=== PATIENT | female | born 1970 | race Caucasian/White ===

== ENCOUNTER 2019-12-12 14:32 | Outpatient (REF) | payer OTHER, SELFPAY ==
--- NOTE | 2019-12-12 14:40 | MM_ITS ---
EXAMINATION: MM SCREENING DIGITAL BREAST TOMOSYNTHESIS, BILATERAL CLINICAL INFORMATION: Screening. Asymptomatic. Family history breast cancer, maternal grandmother. Prior implants, explantation 2010. The lifetime risk of breast cancer based on the Tyrer-Cuzick Model is 10%. COMPARISON: Mammography: 09/05/2018, 08/27/2017, 08/17/2016 TECHNIQUE: Digital breast tomosynthesis is performed in both the craniocaudal and mediolateral oblique views along with computer-aided detection (CAD). Synthesized 2D images are generated from the tomosynthesis. FINDINGS: The breasts are heterogeneously dense, which may obscure small masses (ACR BI-RADS breast composition Category c). Parenchymal pattern is similar to prior studies. Breast tissue composition borders on average fibroglandular. There is no developing density or interval mass or architectural abnormality. Again, there are numerous bilateral scattered calcifications in both breasts. The axilla and skin contours are unremarkable. No significant changes from prior studies. MM/MM tomosynthesis screening BI IMPRESSION: No significant changes from prior studies. ASSESSMENT: BI-RADS 2: Benign RECOMMENDATION: Routine annual mammography screening. This patient's information was entered into a reminder system with a target due date for their next mammogram.
== END 2019-12-12 14:33 | disposition home or self-care (01) ==
LOC: HO.MAMMO 14:32
PROVIDERS: Visit Provider Family Medicine
DX: Z12.31 Encounter for screening mammogram for malignant neoplasm of breast (principal)
CPT/HCPCS: 77063; 77067

== ENCOUNTER 2020-02-03 08:31 | Day surgery (SDC) | payer OTHER, SELFPAY ==
[2020-01-27 11:31] VITALS: BMI 33.6
--- NOTE | 2020-02-02 09:28 | HO.ANESPROP2 ---
Documented by User: Reshma Pak 02/02/20 09:29 HPI - Anesthesia Eval Consult details Narrative: 49yo F for Colonoscopy [facility] Past Medical History Medical History History of breast implant removal No significant medical problems PONV (postoperative nausea and vomiting) Surgical History Surgical History History of nasal surgery Hx of breast implants, bilateral Hx of cholecystectomy Social History Social History Are you a primary neurocritical care physician to a significant other at home: No Smoking Status: Never smoker Use of substances other than those prescribed or required for medical reasons: No Have you been hit, kicked, punched, or otherwise hurt by someone within the past year? If so, by whom?: No Advance Directives: No Advance Directives Information Provided: No Advance Directives on File: No Recently lost weight without trying: No Meds Allergies Allergy/AdvReac Type Severity Reaction Status Date / Time No Known Allergies Allergy Unverified 01/27/20 11:27 Home Medications Medication Instructions Recorded Confirmed Type multivitamin 1 tab PO DAILY 01/27/20 01/27/20 History Exam Exam Date and Time: February 02, 2020927 Height,Weight and Vital Signs: Height 5 ft 3 in Weight 86.183 kg Assessment and Plan Assessment Anesthesia Assessment: Chart Reviewed Documented by User: Rose Stapleton 02/03/20 09:01 [facility] Past Medical History Medical History History of breast implant removal No significant medical problems PONV (postoperative nausea and vomiting) Surgical History Surgical History History of nasal surgery Hx of breast implants, bilateral Hx of cholecystectomy Social History Social History Are you a primary neurocritical care physician to a significant other at home: No Smoking Status: Never smoker Use of substances other than those prescribed or required for medical reasons: No Have you been hit, kicked, punched, or otherwise hurt by someone within the past year? If so, by whom?: No Advance Directives: No Advance Directives Information Provided: No Advance Directives on File: No Recently lost weight without trying: No Meds Allergies Allergy/AdvReac Type Severity Reaction Status Date / Time No Known Allergies Allergy Unverified 01/27/20 11:27 Home Medications Medication Instructions Recorded Confirmed Type multivitamin 1 tab PO DAILY 01/27/20 01/27/20 History Exam Airway Mallampati Class: III (Mouth doesnt open wide) TM Dist: >3cm Neck ROM: Full Loose/Missing/Broken Teeth: No Heart: RRR Lungs: CTA Assessment and Plan Assessment Anesthesia Assessment: Anesthesia Plan Discussed and Chart Reviewed Final Anesthetic Review NPO: Yes ASA Class: II Final Preanesthetic Review: Meds/Allgs Chart Reviewed, Consent Obtained/Reviewed and Anes Risks/Benef Reviewed Patient Risk: Low Procedure Risk: Low Anesthetic Plan Anesthetic Plan: MAC: Disposition: Standard PACU
[2020-02-03 08:39] VITALS: BP 148/94; PULSE 78; RESP 16; TEMP 36.4; O2SAT 98
[2020-02-03] MEDS: Lactated Ringers 1,000 ML 100 ML IVCONT (09:01)
--- NOTE | 2020-02-03 09:26 | MHC.SHP ---
Pre-Procedural Eval Section A The patient is an INPATIENT: No Changes since office visit: No Cold of Flu in the past 2 weeks, No New Medical Problems, No Changes in Medication and No Patient answered all questions The History & Physical has been completed within 30 days and I have reviewed it.: Yes Section B Chief Complaint: screening Allergies: Allergies Allergy/AdvReac Type Severity Reaction Status Date / Time No Known Allergies Allergy Unverified 01/27/20 11:27 Plan I have reviewed the history and physical and performed a pertinent physical examination on my patient. No changes have occurred unless specified.
[2020-02-03 09:59] VITALS: BP 116/69; PULSE 74; RESP 16; TEMP 36.2; O2SAT 97
--- NOTE | 2020-02-03 10:05 | PM.OP ---
Brief Operative Note Date of Service: 02/03/20 Pre-op diagnosis: SCREENING Post-op diagnosis: same (SAME, DIVERTICULOSIS) Procedure: COLONOSCOPY Surgeon: Agustin Amor Anesthesia: MAC Estimated blood loss (mL): 0 Pathology: none sent Condition: stable Disposition: PACU
[2020-02-03 10:14] VITALS: BP 130/84; PULSE 76; RESP 16; TEMP 36.2; O2SAT 97
--- NOTE | 2020-02-03 10:17 | OP_ITS ---
SURGEON: Agustin Amor MD INDICATIONS: Colon cancer screening. PREOPERATIVE DIAGNOSIS: POSTOPERATIVE DIAGNOSIS: PROCEDURE PERFORMED: ESTIMATED BLOOD LOSS: COMPLICATIONS: ANESTHESIA: ASSISTANTS: SPECIMENS: PROCEDURE: Colonoscopy to the terminal ileum. MEDICATIONS: Monitored anesthesia care. DESCRIPTION OF PROCEDURE: History and physical performed. The risks and benefits of the procedure were explained to the patient. Informed consent was obtained. The patient was placed in the left lateral decubitus position. A digital rectal exam was performed and was found to be normal. The Olympus pediatric video colonoscope was introduced into the rectum and advanced to the cecum without difficulty. The cecum was identified by transillumination, palpation, and identification of ileocecal valve. Examination was performed and the scope was removed. She tolerated the procedure well and returned to recovery area in stable condition. FINDINGS: The terminal ileum was examined and appeared normal. The visualized colonic mucosa was within normal limits without evidence of masses or ulcers. No polyps were identified. There was mild diverticulosis involving the sigmoid. The quality of the prep was excellent. Retroflexed examination showed small internal hemorrhoids. IMPRESSION: Diverticulosis, normal colonoscopy. RECOMMENDATIONS: 1. Follow up as needed. 2. Repeat colonoscopy is recommended in 10 years for average risk individuals. MD GELY Torres/ERIC / [id number]
--- NOTE | 2020-02-03 10:33 | HO.POSTANES ---
Post Anesthesia Evaluation Post Anesthesia Evaluation Vital Signs: Vital Signs Temp Pulse Resp BP Pulse Ox 02/03/20 10:14 97.2 F 76 16 130/84 97 02/03/20 09:59 97.2 F 74 16 116/69 97 02/03/20 08:39 97.6 F 78 16 148/94 H 98 Anesthesia: Monitored Mental Status: Awake Pain Control: Satisfactory Nausea/Vomiting: None Hydration: Adequate Anesthesia-Related Issues: No Anes. Related Issues
== END 2020-02-03 10:38 | disposition home or self-care (01) ==
PROVIDERS: PCP Family Medicine; Visit Provider Internal Medicine Gastroenterology
PROC: 0DJD8ZZ Inspection of Lower Intestinal Tract, Via Natural or Artificial Opening Endoscopic (ICD-10-PCS; CPT 45378; principal; 2020-02-03 09:50)
DX: Z12.11 Encounter for screening for malignant neoplasm of colon (principal); Z90.49 Acquired absence of other specified parts of digestive tract; K57.30 Diverticulosis of large intestine without perforation or abscess without bleeding; K64.8 Other hemorrhoids
CPT/HCPCS: 45378

== ENCOUNTER 2020-12-17 14:14 | Outpatient (REF) | payer OTHER, SELFPAY ==
--- NOTE | ~2020-12-17 | MM_ITS ---
EXAMINATION: MM SCREENING DIGITAL BREAST TOMOSYNTHESIS, BILATERAL CLINICAL INFORMATION: Screening. Asymptomatic. The lifetime risk of breast cancer based on the Tyrer-Cuzick Model is 9%. COMPARISON: Mammography: 12/12/2019, 09/05/2018, 08/27/2017 TECHNIQUE: Digital breast tomosynthesis is performed in both the craniocaudal and mediolateral oblique views along with computer-aided detection (CAD). Synthesized 2D images are generated from the tomosynthesis. FINDINGS: There are scattered areas of fibroglandular density (ACR BI-RADS breast composition Category b). Breast tissue composition borders on average fibroglandular. Parenchymal pattern is similar to prior exams. Smooth minor fibronodular asymmetries are stable. There is no developing density or interval mass or architectural abnormality. Again, there are numerous bilateral scattered calcifications in both breasts. No significant change. MM/MM tomosynthesis screening BI IMPRESSION: No significant changes from prior study. ASSESSMENT: BI-RADS 2: Benign RECOMMENDATION: Routine annual mammography screening. This patient's information was entered into a reminder system with a target due date for their next mammogram.
== END 2020-12-17 14:15 | disposition home or self-care (01) ==
LOC: HO.MAMMO 14:14
PROVIDERS: Visit Provider Family Medicine
DX: Z12.31 Encounter for screening mammogram for malignant neoplasm of breast (principal)
CPT/HCPCS: 77063; 77067

== ENCOUNTER 2021-12-19 14:01 | Outpatient (REF) | payer OTHER, SELFPAY ==
--- NOTE | ~2021-12-19 | MM_ITS ---
EXAMINATION: MM SCREENING DIGITAL BREAST TOMOSYNTHESIS, BILATERAL CLINICAL INFORMATION: Screening. Asymptomatic. COMPARISON: Mammography: 12/17/2020, 12/12/2019, 09/05/2018 TECHNIQUE: Digital breast tomosynthesis is performed in both the craniocaudal and mediolateral oblique views along with computer-aided detection (CAD). Synthesized 2D images are generated from the tomosynthesis. FINDINGS: The breasts are heterogeneously dense, which may obscure small masses (ACR BI-RADS breast composition Category c). Parenchymal pattern is similar to prior studies. There are scattered stable minor asymmetries and fibronodular changes similar to prior exams. No developing density or interval architectural abnormality. No significant mass. Again, there are numerous punctate round calcifications in each breast. The axilla and skin contours are unremarkable. No significant changes from prior exams. MM/MM tomosynthesis screening BI IMPRESSION: No significant changes from from prior exams. ASSESSMENT: BI-RADS 2: Benign RECOMMENDATION: Routine annual mammography screening. This patient's information was entered into a reminder system with a target due date for their next mammogram.
== END 2021-12-19 14:02 | disposition home or self-care (01) ==
LOC: HO.MAMMO 14:01
PROVIDERS: Visit Provider Family Medicine
DX: Z12.31 Encounter for screening mammogram for malignant neoplasm of breast (principal)
CPT/HCPCS: 77063; 77067

== ENCOUNTER 2022-11-28 08:13 | Outpatient (REF) | payer OTHER, SELFPAY ==
[2022-11-28 11:26] LABS: MANUAL DIFF FLAG NO
[2022-11-28 11:54] LABS: Basophils Absolute Auto 0.1 X10*3/uL (0.0-0.2); Basophils Percent Auto 0.8 % (0-2); Eosinophils Absolute Auto 0.6 X10*3/uL (0.0-0.4); Eosinophils Percent Auto 6.7 % (0-4); Hematocrit 41.6 % (37.0-47.0); Hemoglobin 13.3 g/dl (12.0-16.0); Imm Gran Abs Auto 0.02 X10*3/uL (0.00-0.03); Imm Gran Pct Auto 0.2 % (0.0-0.4); Lymphocytes Absolute Auto 3.5 X10*3/uL (1.2-4.9); Lymphocytes Percent Auto 42.2 % (20-40); Mean Corpuscular Hemoglobin 27.3 pg (27.0-33.0); Mean Corpuscular Volume 85.2 fL (80.0-98.0); Mean Platelet Volume 11.5 fL (9.4-12.3); Monocytes Absolute Auto 0.4 X10*3/uL (0.1-1.2); Monocytes Percent Auto 5.2 % (2-11); Neutrophils Absolute Auto 3.7 x10*3/uL (2.0-8.3); Neutrophils Percent Auto 44.9 % (45-73); Platelet Count 221 X10*3/uL (160-400); Red Blood Count 4.88 X10*6/uL (4.20-5.50); Red Cell Distribution Width 12.5 % (11.0-16.0); White Blood Count 8.3 X10*3/uL (4.8-10.8)
[2022-11-28 12:32] LABS: Alanine Aminotransferase 26 U/L (0-31); Albumin Level 4.3 g/dL (3.5-5.0); Alkaline Phosphatase 96 U/L (39-117); Anion Gap 13 (12-20); Aspartate Amino Transferase 21 U/L (5-31); Bilirubin Direct 0.1 mg/dL (0.0-0.5); Bilirubin Total 0.4 mg/dL (0.0-1.0); Blood Urea Nitrogen 12 mg/dL (9-16); Calcium 9.6 mg/dL (8.4-10.2); Carbon Dioxide 25 mmol/L (22-29); Chloride 108 mmol/L (96-108); Cholesterol 204 mg/dL (<200); Estimated Glomerular Filt Rate > 60; Glucose Random 86 mg/dL (60-115); HDL Cholesterol 39 mg/dL (>40); LDL Cholesterol Calculated 133 mg/dL (<100); Magnesium 2.3 mg/dL (1.6-2.6); Potassium 3.7 mmol/L (3.3-5.1); Sodium 142 mmol/L (135-145); Total Protein 7.3 g/dL (6.5-8.0); Triglycerides 164 mg/dL (<150)
[2022-11-28 12:33] LABS: TSH reflex Free T4 3.48 uIU/mL (0.32-4.0); Vitamin D 25-OH Total 65.4 ng/mL (>30)
== END 2022-11-28 08:14 | disposition home or self-care (01) ==
LOC: HO.HHCL 08:13
PROVIDERS: Visit Provider Family Medicine
DX: E78.5 Hyperlipidemia, unspecified (principal); R53.83 Other fatigue; I10 Essential (primary) hypertension; N95.9 Unspecified menopausal and perimenopausal disorder; Z13.21 Encounter for screening for nutritional disorder
CPT/HCPCS: 36415; 80048; 80061; 80076; 82306; 83735; 84443; 85025

== ENCOUNTER 2022-12-25 13:29 | Outpatient (REF) | payer OTHER, SELFPAY ==
--- NOTE | ~2022-12-25 | MM_ITS ---
EXAMINATION: MM SCREENING DIGITAL BREAST TOMOSYNTHESIS, BILATERAL CLINICAL INFORMATION: Screening. Asymptomatic. COMPARISON: Mammography: This study is compared with prior exams dating back to 2018. TECHNIQUE: Digital breast tomosynthesis is performed in both the craniocaudal and mediolateral oblique views along with computer-aided detection (CAD). Synthesized 2D images are generated from the tomosynthesis. FINDINGS: There are scattered areas of fibroglandular density (ACR BI-RADS breast composition Category b). There are no significant masses, abnormal calcifications, or other abnormalities. There are scattered benign calcifications throughout each breast. MM/MM tomosynthesis screening BI IMPRESSION: No mammographic evidence of malignancy. ASSESSMENT: BI-RADS BI-RADS 2 - Benign Findings RECOMMENDATION: Routine annual mammography screening. 1 year F/U This examination should not preclude the clinical evaluation of a suspicious palpable abnormality. This patient's information was entered into a reminder system with a target due date for their next mammogram.
== END 2022-12-25 13:30 | disposition home or self-care (01) ==
LOC: HO.MAMMO 13:29
PROVIDERS: PCP Family Medicine; Visit Provider Family Medicine
DX: Z12.31 Encounter for screening mammogram for malignant neoplasm of breast (principal)
CPT/HCPCS: 77063; 77067

== ENCOUNTER → 2022-12-25 13:45 | Outpatient (BNV) | payer OTHER, SELFPAY | PROVIDERS: PCP Family Medicine; Visit Provider Radiology Diagnostic Radiology | DX: Z12.31 Encounter for screening mammogram for malignant neoplasm of breast (principal) | CPT/HCPCS: 77063; 77067 ==

== ENCOUNTER 2023-11-13 08:31 | Outpatient (REF) | payer OTHER, SELFPAY ==
[2023-11-13 11:05] LABS: MANUAL DIFF FLAG NO
[2023-11-13 11:17] LABS: Basophils Percent Auto 0.5 % (0-2); Eosinophils Absolute Auto 0.5 X10*3/uL (0.0-0.4); Eosinophils Percent Auto 6.9 % (0-4); Hematocrit 40.9 % (37.0-47.0); Hemoglobin 13.3 g/dl (12.0-16.0); Imm Gran Abs Auto 0.03 X10*3/uL (0.00-0.03); Imm Gran Pct Auto 0.4 % (0.0-0.4); Lymphocytes Percent Auto 37.8 % (20-40); Mean Corpuscular HGB Conc 32.5 g/dl (31.0-35.0); Mean Corpuscular Hemoglobin 27.5 pg (27.0-33.0); Mean Corpuscular Volume 84.5 fL (80.0-98.0); Mean Platelet Volume 10.9 fL (9.4-12.3); Monocytes Absolute Auto 0.4 X10*3/uL (0.1-1.2); Monocytes Percent Auto 5.2 % (2-11); Neutrophils Absolute Auto 3.9 x10*3/uL (2.0-8.3); Neutrophils Percent Auto 49.2 % (45-73); Platelet Count 212 X10*3/uL (160-400); Red Blood Count 4.84 X10*6/uL (4.20-5.50); Red Cell Distribution Width 12.7 % (11.0-16.0); White Blood Count 7.8 X10*3/uL (4.8-10.8)
[2023-11-13 11:34] LABS: Alanine Aminotransferase 30 U/L (0-31); Albumin Level 4.3 g/dL (3.5-5.0); Alkaline Phosphatase 101 U/L (39-117); Anion Gap 12 (12-20); Aspartate Amino Transferase 24 U/L (5-31); Bilirubin Direct 0.1 mg/dL (0.0-0.5); Bilirubin Total 0.4 mg/dL (0.0-1.0); Blood Urea Nitrogen 17 mg/dL (9-16); Calcium 9.6 mg/dL (8.4-10.2); Carbon Dioxide 26 mmol/L (22-29); Chloride 108 mmol/L (96-108); Cholesterol 182 mg/dL (<200); Estimated Glomerular Filt Rate > 60; Glucose Random 98 mg/dL (60-115); HDL Cholesterol 34 mg/dL (>40); LDL Cholesterol Calculated 109 mg/dL (<100); Potassium 3.8 mmol/L (3.3-5.1); Sodium 142 mmol/L (135-145); Triglycerides 198 mg/dL (<150)
[2023-11-13 11:53] LABS: TSH reflex Free T4 2.49 uIU/mL (0.32-4.0); Vitamin D 25-OH Total 43.6 ng/mL (>30)
== END 2023-11-13 08:32 | disposition home or self-care (01) ==
LOC: HO.HHCL 08:31
PROVIDERS: Visit Provider Family Medicine
DX: E78.5 Hyperlipidemia, unspecified (principal); I10 Essential (primary) hypertension; E66.3 Overweight
CPT/HCPCS: 36415; 80048; 80061; 80076; 82306; 84443; 85025

== ENCOUNTER 2024-01-18 11:32 | Outpatient (REF) | payer OTHER, SELFPAY ==
--- NOTE | ~2024-01-18 | MM_ITS ---
EXAMINATION: MM SCREENING DIGITAL BREAST TOMOSYNTHESIS, BILATERAL CLINICAL INFORMATION: Screening. Asymptomatic. COMPARISON: Mammography: Comparison is made with available priors TECHNIQUE: Digital breast mammography with tomosynthesis is performed in both the craniocaudal and mediolateral oblique views along with computer-aided detection (CAD). FINDINGS: The breasts are heterogeneously dense, which may obscure small masses (ACR BI-RADS breast composition Category c). Bilateral scattered asymmetry stable dating back to 2019. There are no significant masses, abnormal calcifications, or other abnormalities. MM/MM tomosynthesis screening BI IMPRESSION: No mammographic evidence of malignancy. ASSESSMENT: BI-RADS BI-RADS 2 - Benign Findings RECOMMENDATION: Routine annual mammography screening. 1 year F/U This examination should not preclude the clinical evaluation of a suspicious palpable abnormality. This patient's information was entered into a reminder system with a target due date for their next mammogram. Electronically signed by: Mely Viveros DO 01/24/2024 12:17 PM [facility]
--- OUTSIDE RECORDS SUMMARY | 2024-01-23 08:00 | XMS_ITS | Patient Health Record ---
Author Organization [facility] Address [address] [place] [address] Care Team Providers Care Oracle Engineer Name Role Phone Rachell CLARKE, Risa Primary Care Provider Britni Agustin Wilkerson Jr Unavailable [phone] REASON FOR REFERRAL No Information MEDICATIONS Medication SIG (Take, Route, Fr equency, Duration) Notes Start Date End Date Status Multivitamin Adult A ctive IMMUNIZATIONS Vaccine Route Administration Date Status Comme nts Influenza Unknown 10/14/2019 Administered SOCIAL HISTORY Tobacco Use: Social History Observation Description Date Details (start date - stop date) Never Smoker NA - NA Sex Assigned At : Social History Observation Description Sex Assigned At Unknown Tobacco Use/Smoking Question Answer Notes Patient is a nonsmoker Alcohol Screen Question Answer Notes Did you have a drink containing alcohol in the p ast year? No Points 0 Interpretation Negative PROBLEMS Problem Type ICD Code Onset Dates Problem Status W/U Status Risk SNOMED Code Notes Problem Colon cancer screening (Z12.11) Active confirmed 332629683 Problem Encounter for other preprocedural examination (Z01.818) Active confirmed 826028182 PLAN OF TREATMENT Future Test Test Name Order Date COLONOSCOPY 01/22/2020 Insurance Providers Payer Name Payer Address Payer Phone Subscriber Number Group Number Insured Name Patient Relationship to Insured Coverage Start Date Coverage End Date [facility] [address] [place] [phone] [id number] KENNEY FLORES Self - patient is the insured MEDICAL (GENERAL) HISTORY Medical History History ICD Code Denies [place],DM,CVA,Lung disease,renal dise ase Surgical History Surgery Date(Month/Year) breast implants 2006 breast implant removal 2010 kidneystones [id number] nose 2002
== END 2024-01-18 11:33 | disposition home or self-care (01) ==
LOC: HO.MAMMO 11:32
PROVIDERS: PCP Family Medicine; Visit Provider Family Medicine
DX: Z12.31 Encounter for screening mammogram for malignant neoplasm of breast (principal)
CPT/HCPCS: 77063; 77067

== ENCOUNTER → 2024-01-18 11:45 | Outpatient (BNV) | payer OTHER, SELFPAY | PROVIDERS: PCP Family Medicine; Visit Provider Internal Medicine | DX: Z12.31 Encounter for screening mammogram for malignant neoplasm of breast (principal) | CPT/HCPCS: 77063; 77067 ==

== ENCOUNTER 2024-12-22 08:04 | Outpatient (REF) | payer OTHER, SELFPAY ==
--- OUTSIDE RECORDS SUMMARY | 2024-12-22 08:09 | XMS_ITS | Patient Health Record ---
Author Organization [facility] Address [address] [place] [address] Care Team Providers Care Metal Drill Press Operator Name Role Phone Rachell CLARKE, Risa Primary Care Provider Britni Agustin Wilkerson Jr Unavailable [phone] Reason For Referral No Information Medications Medication SIG (Take, Route, Fr equency, Duration) Notes Start Date End Date Status Multivitamin Adult A ctive Immunizations Vaccine Route Administration Date Status Comme nts Influenza Unknown 10/14/2019 Administered Social History Tobacco Use: Social History Observation Description Date Details (start date - stop date) Never Smoker NA - NA Tobacco Use/Smoking Question Answer Notes Patient is a nonsmoker Alcohol Screen Question Answer Notes Did you have a drink containing alcohol in the p ast year? No Points 0 Interpretation Negative Problems Problem Type SNOMED Code ICD Code Onset Dates Problem Status W/U Status Risk Notes Problem Colon cancer screening (155791906) Colon cancer screening (Z12.11) Active confirmed Problem Pre-procedure evaluation check (707761588) Encounter for other preprocedural examination (Z01.818) Active confirmed Plan Of Treatment Future Test Test Name Order Date COLONOSCOPY 01/22/2020 Insurance Providers Payer Name Payer Address Payer Phone Subscriber Number Group Number Insured Name Patient Relationship to Insured Coverage Start Date Coverage End Date [facility] [address] [place] [phone] [id number] KENNEY FLORES Self - patient is the insured Medical (General) History Medical History History ICD Code Denies [place],DM,CVA,Lung disease,renal dise ase Surgical History Surgery Date(Month/Year) breast implants 2007 breast implant removal 2010 kidneystones [id number] nose 2002
--- OUTSIDE RECORDS SUMMARY | 2024-12-22 08:09 | XMS_ITS | Encounter Summary ---
Author Organization [employer] [facility] Address [address] [place] [address] Care Team Providers Care Performance Reporter Name Role Phone Risa Lovett MD Primary Care Provider +- [phone] Filomena Davidson PharmD Unavailable [phone] Encounter Details Date Type Department Care Team ([facility] st Contact Info) Description 12/18/2024 Telephone [facility] [address] [place], [place] [phone] Risa Lovett MD [address] [place] [address] Social History Tobacco Use Types Packs/Day Years Used Date Smoking Tobacco: Never Smokeless Tobacco: Never Depression Answer Date Recorded Patient Health Questionnaire-9 Score 2 11/19/2023 Patient Health Questionnaire-9 Score 2 11/19/2023 Last PHQ-9: Questionnaire Data Not on file 1 Housing Stability Answer Date Recorded What is your housing situation today? I have bravo alejo 11/19/[address] you li ve. Do you have problems with any of the following? None of the above 11/19/2023 Food Insecurity Answer Date Recorded Within the past 12 months, y ou worried that your food would run out before you got money to buy more: Never True 11/19/2023 Within the past 12 months,th e food you bought just didn't last and you didn't have enough money to get more: Never True 08/2023 Transportation Answer Date Recorded In the past 12 months, has l ack of transportation kept you from medical appts, meetings, work or from getting things needed for daily living? No 11/19/2023 Utilities Answer Date Recorded In the past 12 months, has t he electric, gas, oil or water company threatened to shut off services in your home? No 11/19/2023 Depression Answer Date Recorded Patient Health Questionnaire-2 Score 1 11/19/2023 Internet Access Answer Date Recorded Internet Access Q1 Yes 11/19/2023 Internet Access Q2 Not on file 11/19/2023 Comments Unknown Sex and Gender Information Value Date Recorded Sex Assigned at Female 12/12/2021 10:16 AM EDT Legal Sex Female 10:16 AM EDT Gender Identity Female 12/12/2021 10:16 AM EDT Sexual Orientation Straight 12/12/2021 10 :16 AM EDT documented as of this encounter Miscellaneous Notes * Telephone Encounter - Risa Lovett MD - 12/18/2024 2:16 PM EST Please ask Callie to get fasting labs before her apt on Dec 24 if she can. She can go to [facility] on sat if needed. Thank you. documented in this encounter Plan of Treatment Upcoming Encounters Date Type Department Care Team (Late st Contact Info) Description 12/24/2024 2:15 PM EST Office Visit [facility] [address] [place] [phone] Risa Lovett MD [address] [place] [phone] documented as of this encounter Goals Goal Patient Goal Type Associated Problems Recent Progress Patient-Stated? Author Blood Pressure < 140/90 Blood Pressure 130/80( 024 9:03 AM EDT) No Piers-Gambl e, Filomena, PharmD Follow the DASH diet Diet No Piers-Gambl e, Filomena, PharmD documented as of this encounter Visit Diagnoses Not on filedocumented in this encounter Additional Health Concerns Assessment Noted Time PHQ-9 Depression Total Score: 2 11/19/19 24 9:08 AM EDT documented as of this encounter Care Teams Performance Reporter Relationship Specialty Start Date End Date Risa Lovett MD [address] [place] [address] PCP - General Family Medicine 02/12/18 Filomena Davidson, KanchanD [address] [place] [address] Pharmacist Internal Medicine 02/20/22 documented as of this encounter
--- OUTSIDE RECORDS SUMMARY | 2024-12-22 08:09 | XMS_ITS | Encounter Summary ---
Author Organization [employer] Address [address] [facility] [place] [address] Care Team Providers Care Customs Port Director Name Role Phone Risa Lovett MD Primary Care Provider +- [phone] Filomena Davidson PharmD Unavailable [phone] Encounter Details Date Type Department Care Team (Late st Contact Info) Description 05/16/2023 Telephone [facility] [address] [place], [place] [phone] Risa Lovett MD [address] [place], [place] [phone] Social History Tobacco Use Types Packs/Day Years Used Date Smoking Tobacco: Never Smokeless Tobacco: Never Depression Answer Date Recorded Patient Health Questionnaire-9 Score 0 11/15/2022 Housing Stability Answer Date Recorded What is your housing situation today? I have bravo alejo 11/28/[address] you li ve. Do you have problems with any of the following? None of the above 11/28/2022 Food Insecurity Answer Date Recorded Within the past 12 months, y ou worried that your food would run out before you got money to buy more: Never True 11/28/2022 Within the past 12 months,th e food you bought just didn't last and you didn't have enough money to get more: Never True Transportation Answer Date Recorded In the past 12 months, has l ack of transportation kept you from medical appts, meetings, work or from getting things needed for daily living? No 11/28/2022 Utilities Answer Date Recorded In the past 12 months, has t he electric, gas, oil or water company threatened to shut off services in your home? No 11/28/2022 Depression Answer Date Recorded Patient Health Questionnaire-2 Score 0 11/15/2022 Comments Unknown Sex and Gender Information Value Date Recorded Sex Assigned at Female 12/12/2021 10:16 AM EDT Legal Sex Female 10:16 AM EDT Gender Identity Female 12/12/2021 10:16 AM EDT Sexual Orientation Straight 12/12/2021 10 :16 AM EDT documented as of this encounter Plan of Treatment Upcoming Encounters Date Type Department Care Team (Late st Contact Info) Description 12/24/2024 2:15 PM EST Office Visit [facility] [address] [place] [address] Risa Lovett MD [address] [place] [address] documented as of this encounter Goals Goal Patient Goal Type Associated Problems Recent Progress Patient-Stated? Author Blood Pressure < 140/90 Blood Pressure 130/80( 024 9:03 AM EDT) No Filomena Rutherford, PharmD Follow the DASH diet Diet No Kains-Freddy oliver, Filomena, PharmD documented as of this encounter Visit Diagnoses Not on filedocumented in this encounter Additional Health Concerns Assessment Noted Time PHQ-9 Depression Total Score: 0 11/16/19 23 10:33 AM EDT documented as of this encounter Care Teams Customs Port Director Relationship Specialty Start Date End Date Risa Lovett MD [address] [place] [phone] PCP - General Family Medicine 02/12/18 Filomena Davidson, PharmD [address] [place] [phone] Pharmacist Internal Medicine 02/20/22 documented as of this encounter
--- OUTSIDE RECORDS SUMMARY | 2024-12-22 08:09 | XMS_ITS | Encounter Summary ---
Author Organization [employer] Address [address] [facility] [address] [place] [address] Care Team Providers Care Talent Rep Name Role Phone Risa Lovett MD Primary Care Provider + [phone] Filomena Davidson PharmD Unavailable [phone] Reason for Visit * Reason Onset Date Comments lab reminder 12/19/2024 Encounter Details Date Type Department Care Team ([facility] st Contact Info) Description 12/19/2024 Telephone [facility] [address] [place] [address] Risa Lovett MD [address] [place], [place] [phone] lab reminder Social History Tobacco Use Types Packs/Day Years [...] encounter Miscellaneous Notes * Telephone Encounter - Jeff Rowe MA - 12/19/2024 2:59 PM EST T/C to pt for labs reminder prior visit 12/24/24. No answer LVM to call clinic. If pt call back please remind pt to do labs prior 12/24/24 visit fasting. documented in this encounter Plan of Treatment Upcoming Encounters Date Type Department Care Team (Late st Contact Info) Description 12/24/2024 2:15 PM EST Office Visit [facility] [address] [place] [phone] Risa Lovett MD [address] [place] [address] documented as of this encounter Goals Goal [...] documented as of this encounter Care Teams Talent Rep Relationship Specialty Start Date End Date Risa Lovett MD [address] [place] [address] PCP - General Family Medicine 02/12/18 Filomena Davidson PharmD [address] [place] [address] Pharmacist Internal Medicine 02/20/22 documented as of this encounter
--- OUTSIDE RECORDS SUMMARY | 2024-12-22 08:09 | XMS_ITS | Encounter Summary ---
Author Organization [employer] Address [address] [facility] 7 [place] [address] Care Team Providers Care Upstream Biomanufacturing Technician Name Role Phone Risa Lovett MD Primary Care Provider + [phone] Filomena Davidson PharmD Unavailable Encounter Details Date Type Department Care Team ([facility] Contact Info) Description 03/17/2022 Abstract [facility] [address] [place] [address] [phone] Risa Lovett MD [address] [place] [address] [phone] Social History Tobacco Use Types Packs/Day Years Used Date Smoking Tobacco: Never Assessed Comments Unknown Sex and Gender Information Value Date Recorded Sex Assigned at Female 12/12/2021 10:16 AM EDT Legal Sex Female 10:16 AM EDT Gender Identity Female 12/12/2021 10:16 AM EDT Sexual Orientation Straight 12/12/2021 10 :16 AM EDT COVID-19 Exposure Response Date Recorded In the last 10 days, have yo u been in contact with someone who was confirmed or suspected to have Coronavirus/COVID-19? No / Unsure 02/20/2022 2:46 PM EST documented as of this encounter Plan of Treatment Upcoming Encounters Date Type Department Care Team (Late Contact Info) Description 12/24/2024 2:15 PM EST Office Visit [facility] [address] [place] [address] [phone] Risa Lovett MD [address] [place] [address] [phone] documented as of this encounter Goals Goal Patient Goal Type Associated Problems Recent Progress Patient-Stated? Author Blood Pressure < 140/90 Blood Pressure 130/80( 024 9:03 AM EDT) No Filomena Rutherford PharmD Follow the DASH diet Diet No Filomena Rutherford PharmD documented as of this encounter Procedures Procedure Name Priority Date/Time Associated Diagnosis Comments MAMMOGRAPHY Routine 12/19/2021 PAP SMEAR Routine 06/17/2020 12:00 AM EDT COLONOSCOPY Routine 02/03/2020 documented in this encounter Results * Mammography (12/19/2021) HM Mammogram BIRADS 2 Anatomical Region Laterality Modality Other Historical Provider HEALTH MAINTENANCE Final Result * Pap Smear (06/17/2020 12:00 AM EDT) Swab Historical Provider LAB CYTOLOGY ORDERABLES F inal Result IMAGING * Colonoscopy (02/03/2020) Colonoscopy normal Historical Provider HEALTH MAINTENANCE Final Result documented in this encounter Visit Diagnoses Not on filedocumented in this encounter Care Teams Upstream Biomanufacturing Technician Relationship Specialty Start Date End Date Risa Lovett MD [address] [place] [address] PCP - General Family Medicine 02/12/18 Filomena Davidson PharmD [address] [place] [address] Pharmacist Internal Medicine 02/20/22 documented as of this encounter
--- OUTSIDE RECORDS SUMMARY | 2024-12-22 08:09 | XMS_ITS | Encounter Summary ---
Author Organization [employer] Address [address] [facility] 7[address] [place] [address] Care Team Providers Care Federal District Clerk Name Role Phone Risa Lovett MD Primary Care Provider + [phone] Filomena Davidson PharmD Unavailable [phone] Encounter Details Date Type Department Care Team (Late st Contact Info) Description 04/24/2024 Orders Only [facility] [address] [place], [place] [phone] Rias Lovett MD [address] [place], [place] [phone] Social History Tobacco Use Types Packs/Day Years [...] Description 12/24/2024 2:15 PM EST Office Visit [facility] [address] [place] [phone] Risa Lovett MD [address] [place] [phone] documented as of this encounter Goals Goal Patient Goal Type Associated Problems Recent Progress Patient-Stated? Author Blood Pressure < 140/90 Blood Pressure 130/80( 024 9:03 AM EDT) No Filomena Rutherford PharmTaylor Follow the DASH diet Diet No Filomena Rutherford, PharmD documented as of this encounter Visit Diagnoses Not on filedocumented in this encounter Additional Health Concerns Assessment Noted Time PHQ-9 Depression Total Score: 2 11/19/19 24 9:08 AM EDT documented as of this encounter Care Teams [employer] Clerk Relationship Specialty Start Date End Date Risa Lovett MD [address] [place] [address] [phone] PCP - General Family Medicine 02/12/18 Filomena Davidson, PharmD [address] [place] [phone] Pharmacist Internal Medicine 02/20/22 documented as of this encounter
--- OUTSIDE RECORDS SUMMARY | 2024-12-22 08:09 | XMS_ITS | Clinical Summary ---
Author Organization [facility] Address [address] [place] [address] Care Team Providers Care Network Operations Lead Name Role Phone Cassandra Donaldson LISA Primary Care Provider [phone] Source Comments PLEASE NOTE, if this patient is a minor, it may be UNLAWFUL to discuss sensitive information that is contained in these records (such as FAMILY PLANNING, MENTAL HEALTH or SUBSTANCE ABUSE) with the minor patient's parent or other person without the patient's specific authorization.[facility] Allergies No known active allergies Medications No known medications Active Problems No known active problems Social History Tobacco Use Types Packs/Day Years Used Date Smoking Tobacco: Never Smokeless Tobacco: Never Tobacco Cessation:Counseling Given: Not Answered Social Connections Answer Date Recorded Connectedness 0 11/04/2023 Financial Resource Strain Answer Date R ecorded Financial Resource Strain 0 2021 Stress Answer Date Recorded Stress 0 12/08/2021 Physical Activity Answer Date Recorded Physical Activity 0 12/08/2021 Food Insecurity Answer Date Recorded Food 0 11/08/2023 Transportation Needs Answer Date Record ed Transportation 0 12/08/2021 Housing Stability Answer Date Recorded Housing 0 12/08/2021 Safety and Environment Answer Date Reza rded Safety 0 12/08/2021 Utilities Answer Date Recorded Utilities 0 12/08/2021 Employment Answer Date Recorded Stress 0 11/04/2023 Comments Unknown Sex and Gender Information Value Date Recorded Sex Assigned at Not on file Legal Sex Female 8:39 AM PST Gender Identity Not on file Sexual Orientation Not on file Last Filed Vital Signs Vital Sign Reading Time Taken Comments Blood Pressure 123/74 03/13/2023 4:29 PM EST Pulse 66 03/13/2023 4:29 PM EST Temperature - - Respiratory Rate - - Oxygen Saturation - - Inhaled Oxygen Concentration - - Weight - - Height - - Body Mass Index - - Plan of Treatment Upcoming Encounters Date Type Department Care Team (Late st Contact Info) Description 03/18/2025 10:20 AM EST Office Visit [facility] [address] [place] [phone] Vanessa Umana [address] [place] [address] Health Maintenance Due Date Last Done Comments Anxiety Screening 1969 Dental FMX/Pano 1969 Diabetes Screening 1969 HPV Screening (self-collect) 1969 HPV Screening 1969 Hepatitis C Screening 1969 Pap + HPV 1969 CT Colonography 2014 Colonoscopy 2014 Colorectal Cancer Screening 2014 FIT/gFOBT 2014 Fecal DNA 2014 Flexible Sigmoidoscopy 2014 Imm-Pneumococcal 50+ (1 of 1 - PCV) 12/18/2019 Breast Cancer Screening (Mammogram) 09/06/2020 09/06/2018, 08/29/2017 Cervical Cancer Screening 06/17/2023 Pap Smear 06/17/2023 06/16/2020 Alcohol and Drug Screen 02/13/2024 Depression Annual Screen 02/13/2024 Hypertension Screening (#1) 03/12/2024 [id number] ( season) 2024 11/19/2023, 08/12/2021, 03/29/2021, Additional history exists Imm-Influenza (#1) 2024 11/19/2023, 1 , 11/17/2021, Additional history exists Tobacco Screening 09/17/2025 09/17/2024 Dental BW 09/19/2025 09/17/2024, 02/0 04/2024, 09/13/2023, Additional history exists Dental Examination 09/19/2025 09/17/2024, 0 03/17/2024, 09/13/2023, Additional history exists Dental Perio Charting 09/19/2025 09/17/2024 , 03/17/2024, 03/13/2023, Additional history exists Dental Prophy 09/19/2025 09/17/2024, 02/0 04/2024, 09/13/2023, Additional history exists Lipid Screening 11/12/2028 11/13/2023, 11/28/2022 Imm-DTaP/Tdap/Td (3 - Td or Tdap) 08/21/2033 024, 07/23/2013 HIV Screening Completed 08/23/2021, 08/23/2021 Imm-Zoster, Recombinant Completed 10/13/2021, 08/11 Imm-Hepatitis B Completed 06/18/2023, 1107/2022, 11/15/2022 Cervical Ablation/Cold-Knife Conization Discontinued Cervical Cryotherapy Discontinued Colposcopy Discontinued Excision/Leep Discontinued HPV Genotyping Discontinued Vaginal Pap Discontinued Vulvoscopy Discontinued Procedures Procedure Name Priority Date/Time Associated Diagnosis Comments BITEWINGS - FOUR RADIOGRAPHIC IMAGES Routine 09/17/2024 10:20 AM EDT Caries of enamel (incipient) Encounter for dental examination and cleaning without abnormal findings PROPHYLAXIS - ADULT Routine 09/17/2024 1 0:20 AM EDT Caries of enamel (incipient) Encounter for dental examination and cleaning without abnormal findings PERIODIC ORAL EVALUATION ESTABLISHED PATIENT Routine 09/17/2024 10:20 AM EDT Caries of enamel (incipient) Encounter for dental examination and cleaning without abnormal findings COMP PERIODONTAL EVALUATION - NEW/EST PATIENT Routine 03/17/2024 11:00 AM EST Caries of enamel (incipient) Encounter for dental examination and cleaning without abnormal findings from Last 3 Months or Most Recently Relevant to Health Maintenance Insurance [facility] Care Teams Network Operations Lead Relationship Specialty Start Date End Date Cassandra Donaldson DMD [address] [place] [address] PCP - General 04/23/20
--- OUTSIDE RECORDS SUMMARY | 2024-12-22 08:09 | XMS_ITS | Clinical Summary ---
Author Organization [employer] Address [address] [facility] [address] [place] [address] Care Team Providers Care Fruit Shipper Name Role Phone Risa Lovett MD Primary Care Provider +- [phone] Filomena Davidson PharmD Unavailable +1- [phone] Allergies No known active allergies Medications multivitamin (Theragran) tablet take 1 tablet by oral route every day with food Active omega-3, EPA + DHA, (fish oil) 1000 MG capsuleIndicatio ns:Dyslipidemia Take 2 capsules (2,000 mg) by mouth 2 times daily. 120 capsule 11 4 Active amLODIPine (Norvasc) 5 MG tabletIndication s:Hypertension, unspecified type TAKE 1 TABLET BY MOUTH ONCE DAILY 90 tablet 3 5 Active Active Problems Problem Noted Date Diagnosed Date Postmenopausal 11/19/2023 Overview (11/19/2023): Final Menstrual Period: 2019 Symptoms: none Risk factors for osteoporosis: none -Discussed with the patient all the options for osteoporosis prevention and advised: -Ca+D supplements 1200 mg po qd/800 MIU -Weight bearing exercises -Adequate protein intake -Supplements may include magnesium, omega-3 Assessment & Plan (11/19/2023 8:07 PM EDT): Final Menstrual Period: 2019 Symptoms: none Risk factors for osteoporosis: none -Discussed with the patient all the options for osteoporosis prevention and advised: -Ca+D supplements 1200 mg po qd/800 MIU -Weight bearing exercises -Adequate protein intake -Supplements may include magnesium, omega-3 Overweight 08/22/2023 Preventative health care 11/08/2022 Overview (11/19/2023): -next physical exam due after 11/18/2024 -followed by Dr. Kenneth Miranda of [facility] ] -dental home is [facility] [place] [facility] proxy filed 08/22/23 Assessment & Plan (11/19/2023 9:05 AM EDT): -next physical exam due after 11/18/2024 -followed by Dr. Kenneth Miranda of [facility] ] -dental home is [facility] [place] [facility] proxy filed 08/22/23 Assessment & Plan (08/22/2023 3:18 PM EDT): -next physical exam due after 11/16/2023 -eye care facilitated by Dr. Mireles -dental home is in [place] [facility] proxy filed 08/22/23 Assessment & Plan (11/15/2022 11:07 AM EDT): -next physical exam due after 11/16/2023 -eye care facilitated by Dr. Mireles -dental home is in [place] Dyslipidemia 02/20/2022 Overview (11/19/2023): Lab Results Component Value Date CHOL 182 11/13/2023 CHOL 204 (H) 11/28/2022 TRIG 198 (H) 11/13/2023 TRIG 164 (H) 11/28/2022 HDL 34 (L) 11/13/2023 HDL 39 (L) 11/28/2022 LDLCHOLCAL 109 (H) 11/13/2023 LDLCHOLCAL 133 (H) 11/28/2022 -continue lifestyle modification -take fish oil regularly, increase exercise, work on nutrition and recheck again in 3 months Assessment & Plan (11/19/2023 8:07 PM EDT): Lab Results Component Value Date CHOL 182 11/13/2023 CHOL 204 (H) 11/28/2022 TRIG 198 (H) 11/13/2023 TRIG 164 (H) 11/28/2022 HDL 34 (L) 11/13/2023 HDL 39 (L) 11/28/2022 LDLCHOLCAL 109 (H) 11/13/2023 LDLCHOLCAL 133 (H) 11/28/2022 -continue lifestyle modification -take fish oil regularly, increase exercise, work on nutrition and recheck again in 3 months Assessment & Plan (08/22/2023 2:00 PM EDT): Lab Results Component Value Date CHOLESTEROL 193 08/23/2021 LDLCHOL 111 (H) 08/23/2021 LDLCHOL 135 (H) 06/24/2020 TRIG 164 (H) 11/28/2022 HDLCHOL 37 (L) 08/23/2021 CHOLHDLRAT 5.2 (H) 08/23/2021 -continue lifestyle modifications -If triglycerides remain elevated will start medication Assessment & Plan (11/15/2022 10:59 AM EDT): Lab Results Component Value Date CHOLESTEROL 193 08/23/2021 LDLCHOL 111 (H) 08/23/2021 LDLCHOL 135 (H) 06/24/2020 HDLCHOL 37 (L) 08/23/2021 CHOLHDLRAT 5.2 (H) 08/23/2021 -continue lifestyle modifications -If triglycerides remain elevated will start medication Primary hypertension 08/26/2021 Overview (11/08/2022): -Blood pressure is at goal -Continue lifestyle modifications -Continue current medications Assessment & Plan (11/19/2023 8:06 PM EDT): -Blood pressure is at goal -Continue lifestyle modifications -Continue current medications Assessment & Plan (08/22/2023 3:25 PM EDT): -Blood pressure is at goal -Continue lifestyle modifications -Continue current medications Assessment & Plan (11/08/2022 12:29 PM EDT): -Blood pressure is at goal -Continue lifestyle modifications -Continue current medications Diverticulosis of sigmoid colon 02/10/2020 Resolved Problems Problem Noted Date Diagnosed Date Resolved Date Seasonal allergic rhinitis 08/22/2023 1 Overview (08/22/2023): -continue Claritin 10mg Assessment & Plan (08/22/2023 3:20 PM EDT): -continue Claritin 10mg Physical exam 11/15/2022 04/24/2024 Overview (11/15/2022): -Normal growth and development. -Anticipatory guidance discussed. -Preventative care / harm reduction discussed. Assessment & Plan (11/15/2022 11:00 AM EDT): -Normal growth and development. -Anticipatory guidance discussed. -Preventative care / harm reduction discussed Dysfunctional uterine bleeding 07/22/2012 11/19/2023 Encounters Date Type Department Care Team Description 12/19/[address] [facility] MEDICINE [address] [place] [phone] Risa Lovett MD lab reminder 12/18/[address] [facility] [address] [place] [phone] Risa Lovett MD 12/16/[address] [facility] [address] [place] [address] [phone] Risa Lovett MD Pre-visit Planning (Pre-visit planning - LVM ) from Last 3 Months Immunizations Immunization Administration Dates Next Due Hep B, adult 06/18/2023,12/18/2022,11/15/2022 Influenza Injectable Quadriv alant Preservative Free IIV4 MDCK 11/17/2021 Influenza injectable quadriv alent IIV4 with preservative 01/03/2017,01/04/2016 Influenza injectable quadriv alent preservative free 11/15/2022,11/11/2020,11/12/2019 Influenza, IIV3, injectable 10/14/2019, 3 Influenza, seasonal, injecta ble, preservative free 11/19/2023 Moderna Covid-19 Vaccine 12+ 02/27/2020,02/04/20 20 Pfizer Covid-19 Vaccine 12+ 11/19/2023,0 08/12/2021,03/29/2021,2020,02/04/2020 Pfizer Covid-19 Vaccine 12+ salomon-sucrose (Kee Cap) 08/12/2021,03/29/2021 Tdap 08/22/2023,07/23/2013 Zoster, Recombinant 10/13/2021,08/11/2021 Family History Medical History Relation Name Comments Diabetes Brother Hypertension Brother Diabetes Father Diabetes Mother Hypertension Mother Relation Name Status Comments Brother Father Mother Social History Tobacco Use Types Packs/Day Years Used Date Smoking Tobacco: Never Smokeless Tobacco: Never Tobacco Cessation:Counseling Given: Not Answered Depression Answer Date Recorded Patient Health Questionnaire-9 [...] Orientation Straight 12/12/2021 10 :16 AM EDT Last Filed Vital Signs Vital Sign Reading Time Taken Comments Blood Pressure 130/80 11/19/2023 9:03 AM EDT Pulse 48 11/19/2023 9:03 AM EDT Temperature 36.9 C (98.5 F) 11/19/2023 9:03 AM EDT Respiratory Rate 18 11/19/2023 9:03 AM EDT Oxygen Saturation 98% 08/22/2023 3:12 PM EDT Inhaled Oxygen Concentration - - Weight 90.3 kg (199 lb) 11/19/2023 9:03 AM EDT Height 160 cm (5' 3 ) 11/19/2023 9:03 AM EDT Body Mass Index 35.25 11/19/2023 9:03 AM EDT Plan of Treatment Upcoming Encounters Date Type Department Care Team (Late st Contact Info) Description 12/24/2024 2:15 PM EST Office Visit [facility] MEDICINE [address] [place], [place] [phone] Risa Lovett MD [address] [place] [address] Health Maintenance Due Date Last Done Comments CT Colonography 1969 FIT DNA/Cologuard 1969 FIT 1970 FOBT 1970 Sigmoidoscopy 1970 Disability Screening 1969 Alcohol/Substance Use Screening 1981 Pneumococcal Vaccine: 50+ Years (1 of 1 - PCV) 12/18/2019 Influenza Vaccine (#1) 2024 , 11/15/2022, 11/17/2021, Additional history exists Depression Screening 11/18/2024 11/19/2023, 11/19/19 24 SDOH Screening 11/18/2024 11/19/2023 Tobacco Screening 04/24/2025 04/24/2024 Cervical Cancer Screening 06/17/2025 HPV/Cotest 06/17/2025 Pap Smear 06/17/2025 06/17/2020 Mammogram 01/17/2026 01/18/2024, 12/13, 12/19/2021, Additional history exists Lipid Panel 11/12/2028 11/13/2023, 11/12, 08/23/2021, Additional history exists Colonoscopy 02/02/2030 02/03/2020 Colorectal Cancer Screening 02/02/2030 DTaP/Tdap/Td Vaccines (3 - Td or Tdap) 08/21/2033 08/22/2023, 07/23/2013 RSV Patients and Patients Aged 60 years or older (1 - 1-dose 75+ series) 2044 HIV Screening Completed 08/23/2021 Hepatitis C Screening Completed 08/23/2021 Zoster Vaccines Completed 10/13/2021, 08/11/2021 Hepatitis B Vaccines Completed 06/18/2023, 12/18/2022, 11/15/2022 COVID-19 Vaccine Completed 11/19/2023, 02/2021, 08/12/2021, Additional history exists HIB Vaccines Aged Out No longer eligi ble based on patient's age to complete this topic HPV Vaccines Aged Out No longer eligi ble based on patient's age to complete this topic Hepatitis A Vaccines Aged Out No long er eligible based on patient's age to complete this topic IPV Vaccines Aged Out No longer eligi ble based on patient's age to complete this topic Meningococcal B Vaccine Aged Out No l onger eligible based on patient's age to complete this topic Meningococcal Vaccine Aged Out No kip akbar eligible based on patient's age to complete this topic RSV under 20 months Aged Out No longe r eligible based on patient's age to complete this topic Rotavirus Vaccines Aged Out No longer eligible based on patient's age to complete this topic Goals Goal Patient Goal Type Associated Problems Recent Progress Patient-Stated? Author Blood Pressure < 140/90 Blood Pressure 130/80( 024 9:03 AM EDT) No Filomena Rutherford, PharmD Follow the DASH diet Diet No Filomena Rutherford, PharmD Procedures Procedure Name Priority Date/Time Associated Diagnosis Comments BI MAMMOGRAM SCREENING TOMOSYNTHESIS BILATERAL Routine 01/18/2024 11:33 AM EST LIPID PANEL, STANDARD Routine 11/13/2023 8:34 AM EDT Dyslipidemia ZZZ HISTORICAL HEPATITIS C AB W/REFL TO HCV RNA, QN, PCR Routine 08/23/2021 8:11 AM EDT HIV 1/2 ANTIGEN/ANTIBODY, FOURTH GENERATION W/RFL Routine 08/23/2021 8:11 AM EDT PAP SMEAR Routine 06/17/2020 12:00 AM EDT HM COLONOSCOPY Routine 02/03/2020 from Last 3 Months or Most Recently Relevant to Health Maintenance Results * BI Mammogram Screening Tomosynthesis Bilateral (01/18/2024 11:33 AM EST) Anatomical Region Laterality Modality Breast Bilateral Mammography 01/18/2024 11:3 3 AM EST Narrative 01/24/2024 12:20 PM EST [facility] [address] [place] [address] Mammography Report Signed Patient: Callie No MR#: [id number] : 1970 Acct:[id number] Age/Sex: 53 / F ADM Date: 01/18/24 Loc: HO.MAMMO Attending Dr: Risa Lovett MD Ordering Physician: Risa Lovett MD Results: 2B enign Findings Date of Service: 01/18/24 Follow Up: 1 Year From [facility] Mammogram Procedure(s): MM tomosynthesis screening BI Accession Number(s): [id number] cc: Risa Lovett MD EXAMINATION: MM SCREENING DIGITAL BREAST TOMOSYNTHESIS, BILATERAL CLINICAL INFORMATION: Screening. Asymptomatic. COMPARISON: Mammography: Comparison is made with available priors TECHNIQUE: Digital breast mammography with tomosynthesis is performed in both the craniocaudal and mediolateral oblique views along with computer-aided detection (CAD). FINDINGS: The breasts are heterogeneously dense, which may obscure small masses (ACR BI-RADS breast composition Category c). Bilateral scattered asymmetry stable dating back to 2019. There are no significant masses, abnormal calcifications, or other abnormalities. MM/MM tomosynthesis screening BI IMPRESSION: No mammographic evidence of malignancy. ASSESSMENT: BI-RADS BI-RADS 2 - Benign Findings RECOMMENDATION: Routine annual mammography screening. 1 year F/U This examination should not preclude the clinical evaluation of a suspicious palpable abnormality. This patient's information was entered into a reminder system with a target due date for their next mammogram. Electronically signed by: Mely Viveros DO 01/24/2024 12:17 PM EST Dictated By: Mely Viveros DO Signed By: <Electronically signed by Mely Viveros DO in OV> 01/24/24 1217 DD/ 1133 TD/TT: 01/18/24 1150 Farebox Repairer: Procedure Note Donotuseinterpreter, Image - [facility] [address] [place] [address] Mammography Report Signed Patient: Callie No TMR#: [id number] : 1970Acct:[id number] Age/Sex: 53 / FADM Date: 01/18/24 Loc: HO.MAMMO Attending Dr: Risa Lovett MD Ordering Physician: Risa Lovett MDResults: 2B enign Findings Date of Service: 01/18/24Follow Up: 1 Year From Orig inal Mammogram Procedure(s): MM tomosynthesis screening BI Accession Number(s): [id number] cc: Risa Lovett MD EXAMINATION: MM SCREENING DIGITAL BREAST TOMOSYNTHESIS, BILATERAL CLINICAL INFORMATION: Screening. Asymptomatic. COMPARISON: Mammography: Comparison is made with available priors TECHNIQUE: Digital breast mammography with tomosynthesis is performed in both the craniocaudal and mediolateral oblique views along with computer-aided detection (CAD). FINDINGS: The breasts are heterogeneously dense, which may obscure small masses (ACR BI-RADS breast composition Category c). Bilateral scattered asymmetry stable dating back to 2019. There are no significant masses, abnormal calcifications, or other abnormalities. MM/MM tomosynthesis screening BI IMPRESSION: No mammographic evidence of malignancy. ASSESSMENT: BI-RADS BI-RADS 2 - Benign Findings RECOMMENDATION: Routine annual mammography screening. 1 year F/U This examination should not preclude the clinical evaluation of a suspicious palpable abnormality. This patient's information was entered into a reminder system with a target due date for their next mammogram. Electronically signed by: Mely Viveros DO 01/24/2024 12:17 PM [facility] Dictated By: Mely Viveros DO Signed By: <Electronically signed by Mely Viveros DO in OV> 01/24/24 1217 DD/ 1133 TD/TT: 01/18/24 1150 Farebox Repairer: Risa Lovett MD IMG BI PROCEDURES Edited R esult - Final * (ABNORMAL) Lipid Panel, Standard (11/13/2023 8:34 AM EDT) Triglycerides 198(H) <150 mg/dL [facility] Comment:Desirable Triglyceri de: less than 150 mg/dLBorderline High Triglyceride 150-199 mg/dLHigh Triglyceride: 200-499 mg/dLVery High Triglyceride: greater than or equal to 5OO mg/dL Cholesterol 182 <200 mg/dL [facility] Comment:Desirable Cholestero l: less than 200 mg/dLBorderline High Cholesterol: 200-239 mg/dLHigh Cholesterol: greater than 239 mg/dL LDL Cholesterol Calculated 109(H) <100 mg/dL [facility] Comment:Desirable LDL: less than 100 mg/dLNear Optimal/Above Optimal LDL: 110- 129 mg/dLBorderline High LDL: 130-159 mg/dLHigh LDL: 160-189 mg/dLVery High LDL: greater than or equal to 190 mg/dL HDL Cholesterol 34(L) >40 mg/dL [facility] Comment:Desirable HDL: great er than 40 mg/dL Note: This HDL assay may give artificially low results in patients with liver disease. Blood Venous blood specimen / Unknown 11/13/2023 8:34 AM EDT 11/13/2023 11:01 AM EDT Risa Lovett MD LAB BLOOD ORDERABLES Final Result [facility] [address] [place] [address] [phone] * HEPATITIS C AB W/REFL TO HCV RNA, QN, PCR (08/23/2021 8:11 AM EDT) HEPATITIS C ANTIBODY NON-REACT ELAINE NON-REACT ELAINE [facility] INDEX 0.05 <1.00 [facility] Comment: HCV antibody was non-reactive. There is no laboratory evidence of HCV infection. In most cases, no further action is required. However, if recent HCV exposure is suspected, a test for HCV RNA (test code 15540) is suggested. For additional information please refer to http://[employer].72xuan/faq/YJL81c7 (This link is being provided for informational/ educational purposes only.) 08/23/2021 8:11 AM EDT Risa Lovett MD HISTORICAL/NON ORDERABLE L ABS Final Result [facility] [address] * HIV 1/2 ANTIGEN/ANTIBODY,FOURTH GENERATION W/RFL (08/23/2021 8:11 AM EDT) HIV-1/2 ANTIGEN AND ANTIBODIES, 4TH GENERATION W/ REFLEX NON-REACT ELAINE NON-REACT ELAINE [facility] Comment: HIV-1 antigen and HIV-1/HIV-2 antibodies were not detected. There is no laboratory evidence of HIV infection. PLEASE NOTE: This information has been disclosed to you from records whose confidentiality may be protected by state law. If your state requires such protection, then the state law prohibits you from making any further disclosure of the information without the specific written consent of the person to whom it pertains, or as otherwise permitted by law. A general authorization for the release of medical or other information is NOT sufficient for this purpose. For additional information please refer to http://[employer]xuan/faq/HRG637 (This link is being provided for informational/ educational purposes only.) The performance of this assay has not been clinically validated in patients less than 2 years old. 08/23/2021 8:11 AM EDT us Risa Lovett MD LAB BLOOD ORDERABLES Final Result [facility] [address] * Pap Smear (06/17/2020 12:00 AM EDT) Swab Historical Provider LAB CYTOLOGY ORDERABLES F inal Result IMAGING * Hm Colonoscopy (02/03/2020) Colonoscopy normal Historical Provider HEALTH MAINTENANCE Final Result from Last 3 Months or Most Recently Relevant to Health Maintenance Insurance [facility] , [address] [place] [address] Advance Directives Documents on File Type Date Recorded Patient Resident Manager Expl anation Advance Directives and Living Will 08/22/2023 Health Care Proxy 08/22/23 Care Teams Fruit Shipper Relationship Specialty Start Date End Date Risa Lovett MD [address] [place] [phone] PCP - General Family Medicine 02/12/18 Filomena Davidson, KanchanD [address] [place] [address] Pharmacist Internal Medicine 02/20/22
[2024-12-22 12:24] LABS: Alanine Aminotransferase 31 U/L (0-31); Albumin Level 4.5 g/dL (3.5-5.0); Alkaline Phosphatase 91 U/L (39-117); Anion Gap 11 (12-20); Aspartate Amino Transferase 27 U/L (5-31); Blood Urea Nitrogen 15 mg/dL (9-16); Calcium 9.4 mg/dL (8.4-10.2); Carbon Dioxide 25 mmol/L (22-29); Chloride 110 mmol/L (96-108); Cholesterol 227 mg/dL (<200); Estimated Glomerular Filt Rate > 60; HDL Cholesterol 43 mg/dL (>40); Potassium 3.9 mmol/L (3.3-5.1); Sodium 142 mmol/L (135-145); Total Protein 7.2 g/dL (6.5-8.0); Triglycerides 171 mg/dL (<150)
== END 2024-12-22 08:05 | disposition home or self-care (01) ==
LOC: HO.HHCL 08:04
PROVIDERS: PCP Family Medicine; Visit Provider Family Medicine
DX: I10 Essential (primary) hypertension (principal); E78.5 Hyperlipidemia, unspecified
CPT/HCPCS: 36415; 80048; 80061; 80076

== ENCOUNTER 2025-02-02 08:48 | Outpatient (REF) | payer OTHER, SELFPAY ==
--- OUTSIDE RECORDS SUMMARY | 2025-02-02 09:15 | XMS_ITS | Encounter Summary ---
Author Organization [employer] Address [address] [facility] [address] [place] [address] Care Team Providers Care Machine Rigger Name Role Phone Risa Lovett MD Primary Care Provider +- [phone] Filomena Davidson PharmD Unavailable [phone]- [phone] Encounter Details Date Type Department Care Team (Late st Contact Info) Description 05/16/2023 Telephone [facility] MEDICINE [address] [place], [place] [phone] Risa Lovett MD [address] [place], [place] [phone] Social History Tobacco Use Types Packs/Day Years [...] Care Team (Late st Contact Info) Description 02/04/2025 11:30 AM EST Office Visit [facility] MEDICINE [address] [place] [address] Risa Lovett MD [address] [place] [address] documented as of this encounter Goals Goal Patient Goal Type Associated Problems Recent Progress Patient-Stated? Author Blood Pressure < 140/90 Blood Pressure 140/90( 025 2:52 PM EST) No Filomena Rutherford, PharmD Follow the DASH diet Diet No Kains-Freddy oliver, Filomena, PharmD documented as of this encounter Visit Diagnoses Not on filedocumented in this encounter Additional Health Concerns Assessment Noted Time PHQ-9 Depression Total Score: 0 11/16/19 23 10:33 AM EDT documented as of this encounter Care Teams Machine Rigger Relationship Specialty Start Date End Date Risa Lovett MD [address] [place] [address] PCP - General Family Medicine 02/12/18 KainsFilomena Rosales, PharmD [address] [place] [phone] Pharmacist Internal Medicine 02/20/22 documented as of this encounter
--- OUTSIDE RECORDS SUMMARY | 2025-02-02 09:16 | XMS_ITS | Clinical Summary ---
Author Organization [employer] Address [address] [facility] 7t [place] [address] Care Team Providers Care [employer] Solutions Specialist Name Role Phone Risa Lovett MD Primary Care Provider +- [phone] Filomena Davidson PharmD Unavailable +1- [phone] Allergies No known active allergies Medications multivitamin [...] ONCE DAILY 90 tablet 3 5 Active atorvastatin (Lipitor) 20 MG tabletIndication s:Dyslipidemia Take 1 tablet (20 mg) by mouth Once per day. 30 tablet 11 5 12/26/19 26 Active Active Problems Problem Noted Date Diagnosed Date Cardiac risk counseling 12/24/2024 Overview (12/24/2024): ASCVD risk 12/24/24 livetime 39% Current 4.9% -start atorvastatin 20mg daily 12/24/24 Assessment & Plan (12/24/2024 2:54 PM EST): ASCVD risk 12/24/24 livetime 39% Current 4.9% -start atorvastatin 20mg daily 12/24/24 Postmenopausal 11/19/2023 Overview (11/19/2023): Final Menstrual Period: [...] -Supplements may include magnesium, omega-3 Overweight 08/22/2023 Other specified health status 11/08/2022 Overview (12/24/2024): -next physical exam due after 12/24/25 -followed by Dr. Kenneth Miranda of [facility] -dental home is [facility] in [facility] proxy filed 08/22/23 Assessment & Plan (12/24/2024 2:54 PM EST): -next physical exam due after 12/24/25 -followed by Dr. Kenneth Miranda of [facility] -dental home is [facility] in [facility] proxy filed 08/22/23 Assessment & Plan (11/19/2023 9:05 AM EDT): -next physical exam due after 11/18/2024 -followed by Dr. Kenneth Miranda of [facility] ] -dental home is [facility] in [facility] proxy filed 08/22/23 Assessment & Plan (08/22/2023 3:18 PM EDT): -next physical exam due after 11/16/2023 -eye care facilitated by Dr. Mireles -dental home is in [facility] proxy filed 08/22/23 Assessment & Plan (11/15/2022 11:07 AM EDT): -next physical exam due after 11/16/2023 -eye care facilitated by Dr. Mireles -dental home is in [place] Dyslipidemia 02/20/2022 Overview (01/29/2025): Lab Results Component Value Date CHOL 227 (H) 12/22/2024 CHOL 182 11/13/2023 CHOL 204 (H) 11/28/2022 TRIG 171 (H) 12/22/2024 TRIG 198 (H) 11/13/2023 TRIG 164 (H) 11/28/2022 HDL 43 12/22/2024 HDL 34 (L) 11/13/2023 HDL 39 (L) 11/28/2022 LDLCHOLCAL 150 (H) 12/22/2024 LDLCHOLCAL 109 (H) 11/13/2023 LDLCHOLCAL 133 (H) 11/28/2022 -continue lifestyle modification -continue fish oil -atorvastatin 20mg started 12/24/24 due to ASCVD risk Assessment & Plan (12/24/2024 2:54 PM EST): Lab Results Component Value Date CHOL 227 (H) 12/22/2024 CHOL 182 11/13/2023 CHOL 204 (H) 11/28/2022 TRIG 171 (H) 12/22/2024 TRIG 198 (H) 11/13/2023 TRIG 164 (H) 11/28/2022 HDL 43 12/22/2024 HDL 34 (L) 11/13/2023 HDL 39 (L) 11/28/2022 LDLCHOLCAL 150 (H) 12/22/2024 LDLCHOLCAL 109 (H) 11/13/2023 LDLCHOLCAL 133 (H) 11/28/2022 -continue lifestyle modification -continue fish oil -atorvastatin 20mg started 12/24/24 due to ASCVD risk Orders: Lipid Panel, Standard; Future Hepatic Function Panel; Future Assessment & Plan (11/19/2023 8:07 PM EDT): [...] modifications -Continue current medications Assessment & Plan (12/24/2024 2:54 PM EST): Orders: Basic Metabolic Panel; Future Assessment & Plan (11/19/2023 8:06 PM EDT): [...] Encounters Date Type Department Care Team Description 12/25/[address] [address] Risa Lovett MD Dyslipidemia 12/24/2024 2:15 PM EST Office Visit [address] [address] Risa Lovett MD Dyslipidemia (Primary Dx); Primary hypertension; Class 1 obesity due to excess calories with serious comorbidity and body mass index (BMI) of 34.0 to 34.9 in adult; Dietary counseling; Exercise counseling; Encounter for vaccination; Encounter for immunization; Cardiac risk counseling; Other specified health status 12/24/2024 Travel 12/23/2024 Travel 12/23/[address] [address] Risa Lovett MD chart prep 12/23/2024 Results Follow-Up [facility] [address] [address] Risa Lovett MD Lipid Panel, Standard, Hepatic Function Panel, Basic Metabolic Panel 12/19/[address] [address] Risa Lovett MD lab reminder 12/18/2024 Telephone [facility] [address] [place] [address] Risa Lovett MD 12/16/2024 Patient Outreach [facility] [address] [place] [address] Risa Lovett MD Pre-visit Planning (Pre-visit planning - LVM ) from Last 3 Months Immunizations Immunization Administration Dates Next Due Hep B, adult 06/18/2023,12/18/2022,11/15/2022 Influenza Injectable Quadriv alant Preservative Free IIV4 MDCK 11/17/2021 Influenza injectable quadriv alent IIV4 with preservative 01/03/2017,01/04/2016 Influenza injectable quadriv alent preservative free 11/15/2022,11/11/2020,11/12/2019 Influenza, IIV3, injectable 10/14/2019, 3 Influenza, seasonal, injecta ble, preservative free 12/24/2024,11/19/2023 Moderna Covid-19 Vaccine 12+ 02/27/2020,02/04/20 20 Pfizer Covid-19 Vaccine 12+ 12/24/2024,1 ,08/12/2021,2021,02/27/2020,02/04/2020 Pfizer Covid-19 Vaccine 12+ salomon-sucrose (Kee Cap) 08/12/2021,03/29/2021 Pneumococcal Conjugate PCV 20 12/24/2024 Tdap 08/22/2023,07/23/2013 Zoster, Recombinant 10/13/2021,08/11/2021 Family History Medical History Relation Name Comments Diabetes Brother Hypertension Brother Diabetes Father Diabetes Mother Hypertension Mother Relation Name Status Comments Brother Father Mother Social History Tobacco Use Types Packs/Day Years Used Date Smoking Tobacco: Never Smokeless Tobacco: Never Tobacco Cessation:Counseling Given: Not Answered Depression Answer Date Recorded Patient Health Questionnaire-9 Score 0 12/24/2024 Patient Health Questionnaire-9 Score 0 12/24/2024 Last PHQ-9: Questionnaire Data Not on file 1 02/24/2024 Housing Stability Answer Date Recorded What is your housing situation today? I have bravo alejo 12/24/[address] you li ve. Do you have problems with any of the following? None of the above 12/24/2024 Food Insecurity Answer Date Recorded Within the past 12 months, y ou worried that your food would run out before you got money to buy more: Never True 12/24/2024 Within the past 12 months,th e food you bought just didn't last and you didn't have enough money to get more: Never True 01/2025 Transportation Answer Date Recorded In the past 12 months, has l ack of transportation kept you from medical appts, meetings, work or from getting things needed for daily living? No 12/24/2024 Utilities Answer Date Recorded In the past 12 months, has t he electric, gas, oil or water company threatened to shut off services in your home? No 12/24/2024 Depression Answer Date Recorded Patient Health Questionnaire-2 Score 0 12/24/2024 Internet Access Answer Date Recorded Internet Access Q1 No 12/24/2024 Internet Access Q2 I do not want or need it 12/13 Comments Unknown Sex and Gender Information Value Date Recorded Sex Assigned at Female 12/12/2021 10:16 AM EDT Legal Sex Female 10:16 AM EDT Gender Identity Female 12/12/2021 10:16 AM EDT Sexual Orientation Straight 12/12/2021 10 :16 AM EDT Last Filed Vital Signs Vital Sign Reading Time Taken Comments Blood Pressure 140/90 12/24/2024 2:52 PM EST Pulse 88 12/24/2024 2:17 PM EST Temperature 36 C (96.8 F) 12/24/2024 2:17 PM EST Respiratory Rate 20 12/24/2024 2:17 PM EST Oxygen Saturation 97% 12/24/2024 2:17 PM EST Inhaled Oxygen Concentration - - Weight 87.2 kg (192 lb 3.2 oz) 12/24/2024 2:17 P M EST Height 160 cm (5' 3 ) 12/24/2024 2:17 PM EST Body Mass Index 34.05 12/24/2024 2:17 PM EST Plan of Treatment Upcoming Encounters Date Type Department Care Team (Late st Contact Info) Description 02/04/2025 11:30 AM EST Office Visit [facility] [address] [place] [address] Risa Lovett MD [address] [place] [address] Health Maintenance Due Date Last Done Comments CT Colonography 1970 FIT DNA/Cologuard 1970 FIT 1970 FOBT 1970 Sigmoidoscopy 1970 Cervical Cancer Screening 06/17/2025 HPV/Cotest 06/17/2025 Pap Smear 06/17/2025 06/17/2020 Disability Screening 12/23/2025 12/23/2024 Alcohol/Substance Use Screening 12/24/2025 12/24/2024 Depression Screening 12/24/2025 12/24/2024, 12/25/19 25 SDOH Screening 12/24/2025 12/24/2024 Tobacco Screening 12/24/2025 12/24/2024 Mammogram 01/17/2026 01/18/2024, 12/13, 12/19/2021, Additional history exists Lipid Panel 12/22/2029 12/22/2024, 02/2023, 11/28/2022, Additional history exists Colonoscopy 02/02/2030 02/03/2020 Colorectal Cancer Screening 02/02/2030 DTaP/Tdap/Td Vaccines (3 - Td or Tdap) 08/21/2033 08/22/2023, 07/23/2013 RSV Patients and Patients Aged 60 years or older (1 - 1-dose 75+ series) 2044 HIV Screening Completed 08/23/2021 Hepatitis C Screening Completed 08/23/2021 Zoster Vaccines Completed 10/13/2021, 08/11/2021 Hepatitis B Vaccines Completed 06/18/2023, 12/18/2022, 11/15/2022 COVID-19 Vaccine Completed 12/24/2024, 08/2023, 08/12/2021, Additional history exists Influenza Vaccine Completed 12/24/2024, , 11/15/2022, Additional history exists Pneumococcal Vaccine: 50+ Years Completed 12/24/2024 HIB Vaccines Aged Out No longer eligi [...] to complete this topic Meningococcal B Vaccine Discontinued Meningococcal Vaccine Aged Out No kip akbar [...] 140/90( 025 2:52 PM EST) No Filomena Rutherford PharmD Follow the DASH diet Diet No Filomena Rutherford PharmD Procedures Procedure Name Priority Date/Time Associated Diagnosis Comments BASIC METABOLIC PANEL Routine 12/22/2024 8:06 AM EST Primary hypertension HEPATIC FUNCTION PANEL Routine 12/22/2024 8:06 AM EST Dyslipidemia LIPID PANEL, STANDARD Routine 12/22/2024 8:06 AM EST Dyslipidemia BI MAMMOGRAM SCREENING TOMOSYNTHESIS BILATERAL Routine 01/18/2024 11:33 AM EST ZZZ HISTORICAL HEPATITIS C AB W/REFL TO HCV RNA, QN, PCR Routine 08/23/2021 8:11 AM EDT HIV 1/2 ANTIGEN/ANTIBODY, FOURTH GENERATION W/RFL Routine 08/23/2021 8:11 AM EDT PAP SMEAR Routine 06/17/2020 12:00 AM EDT HM COLONOSCOPY Routine 02/03/2020 from Last 3 Months or Most Recently Relevant to Health Maintenance Results * Hepatic Function Panel (12/22/2024 8:06 AM EST) Bilirubin, Total 0.4 0.0 - 1.0 mg/dL [facility] Bilirubin, Direct 0.1 0.0 - 0.5 mg/dL [facility] Aspartate Amino Transferase 27 5 - 31 U/L [facility] Alanine Aminotransferase 31 0 - 31 U/L [facility] Total Protein 7.2 6.5 - 8.0 g/dL [facility] Albumin Level 4.5 3.5 - 5.0 g/dL [facility] Alkaline Phosphatase 91 39 - 117 U/L [facility] Blood Venous blood specimen / Unknown 12/22/2024 8:06 AM EST 12/22/2024 11:22 AM EST us Risa Lovett MD LAB BLOOD ORDERABLES Final Result [facility] [address] [place] [address] [phone] * (ABNORMAL) Lipid Panel, Standard (12/22/2024 8:06 AM EST) Triglycerides 171(H) <150 mg/dL [facility] Comment:Desirable Triglyceri de: less than 150 mg/dLBorderline High Triglyceride 150-199 mg/dLHigh Triglyceride: 200-499 mg/dLVery High Triglyceride: greater than or equal to 5OO mg/dL Cholesterol 227(H) <200 mg/dL [facility] Comment:Desirable Cholestero l: less than 200 mg/dLBorderline High Cholesterol: 200-239 mg/dLHigh Cholesterol: greater than 239 mg/dL LDL Cholesterol Calculated 150(H) <100 mg/dL [facility] Comment:Desirable LDL: less than 100 mg/dLNear Optimal/Above Optimal LDL: 110- 129 mg/dLBorderline High LDL: 130-159 mg/dLHigh LDL: 160-189 mg/dLVery High LDL: greater than or equal to 190 mg/dL HDL Cholesterol 43 >40 mg/dL [facility] Comment:Desirable HDL: great er than 40 mg/dL Note: This HDL assay may give artificially low results in patients with liver disease. Blood Venous blood specimen / Unknown 12/22/2024 8:06 AM EST 12/22/2024 11:22 AM EST Risa Lovett MD LAB BLOOD ORDERABLES Final Result Performing Organization Address [facility] Co de Phone Number [facility] [address] [place] [address] [phone] * (ABNORMAL) Basic Metabolic Panel (12/22/2024 8:06 AM EST) Sodium 142 135 - 145 mmol/L [facility] Potassium 3.9 3.3 - 5.1 mmol/L [facility] Chloride 110(H) 96 - 108 mmol/L [facility] Carbon Dioxide 25 22 - 29 mmol/L [facility] Anion Gap 11(L) 12 - 20 [facility] Urea Nitrogen (BUN) 15 9 - 16 mg/dL [facility] Creatinine, Serum 0.62 0.5 - 1.4 mg/dL [facility] Estimated Glomerular Filt Rate >60 [facility] Comment:Chronic Kidney Disea se: Estimated GFR < 60 mL/min/1.32o2Wzhffz Kidney Disease: Estimated GFR < 15 mL/min/1.73m2 Glucose 85 60 - 115 mg/dL [facility] Calcium 9.4 8.4 - 10.2 mg/dL [facility] Blood Venous blood specimen / Unknown 12/22/2024 8:06 AM EST 12/22/2024 11:22 AM EST Risa Lovett MD LAB BLOOD ORDERABLES Final Result Performing Organization Address City/[facility]/ZIP Co de Phone Number [facility] [address] [place] [address] [phone] * BI Mammogram Screening Tomosynthesis Bilateral (01/18/2024 11:33 AM EST) Anatomical Region Laterality Modality Breast Bilateral Mammography 01/18/2024 11:3 3 AM EST Narrative 01/24/2024 12:20 PM EST [facility] [address] [place] [address] Mammography Report Signed Patient: Callie No MR#: [id number] : 1970 Acct:[id number] Age/Sex: 53 / F ADM Date: 01/18/24 Loc: HO.MAMMO Attending Dr: Risa Lovett MD Ordering Physician: Risa Lovett MD Results: 2B enign Findings Date of Service: 01/18/24 Follow Up: 1 Year From Orig inal Mammogram Procedure(s): MM tomosynthesis screening BI Accession Number(s): [id number] cc: Risa Lovett MD EXAMINATION: MM SCREENING [...] by: Mely Viveros DO 01/24/2024 12:17 PM [facility] Dictated By: Mely Viveros DO Signed By: <Electronically signed by Mely Viveros DO in OV> 01/24/24 1217 DD/ 1133 TD/TT: 01/18/24 1150 Patient Accounts Coordinator: Procedure Note Donotuseinterpreter, Image - [facility]/25/20[facility] [address] [place] [address] Mammography Report Signed Patient: Callie No TMR#: [id number] : 1970Acct:[id number] Age/Sex: 53 / FADM Date: 01/18/24 Loc: HO.MAMMO Attending Dr: Risa Lovett MD Ordering Physician: Risa Lovett MDResults: 2B enign Findings Date of Service: 01/18/24Follow Up: 1 Year From Orig inal Mammogram Procedure(s): MM tomosynthesis screening BI Accession Number(s): [id number] cc: Risa Lovett MD EXAMINATION: MM SCREENING [...] by: Mely Viveros DO 01/24/2024 12:17 PM [facility] Dictated By: Mely Viveros DO Signed By: <Electronically signed by Mely Viveros DO in OV> 01/24/24 1217 DD/ 1133 TD/TT: 01/18/24 1150 Patient Accounts Coordinator: us Risa Lovett MD IM BI PROCEDURES Edited R esult - Final * HEPATITIS C AB W/REFL TO HCV RNA, QN, PCR (08/23/2021 8:11 AM EDT) HEPATITIS C ANTIBODY NON-REACT ELAINE NON-REACT ELAINE [facility] INDEX 0.05 <1.00 [facility] Comment: HCV antibody was non-reactive. There is no laboratory evidence of HCV infection. In most cases, no further action is required. However, if recent HCV exposure is suspected, a test for HCV RNA (test code 74201) is suggested. For additional information please refer to http://[employer].EcoLogicLiving/faq/UWH77i3 (This link is being provided for informational/ educational purposes only.) 08/23/2021 8:11 AM EDT Risa Lovett MD HISTORICAL/NON ORDERABLE L ABS Final Result Performing Organization Address [facility] de Phone Number [facility] [address] [place] [address], * HIV 1/2 ANTIGEN/ANTIBODY,FOURTH GENERATION W/RFL (08/23/2021 8:11 AM EDT) Pathologist [facility] HIV-1/2 ANTIGEN AND ANTIBODIES, 4TH GENERATION W/ REFLEX NON-REACT ELAINE NON-REACT ELAINE [facility] Comment: HIV-1 antigen and HIV-1/HIV-2 [...] purpose. For additional information please refer to http://[employer].PlayBuzz.Matrix-Bio/faq/TQF614 (This link is being provided for informational/ educational purposes only.) The performance of this assay has not been clinically validated in patients less than 2 years old. 08/23/2021 8:11 AM EDT Risa Lovett MD LAB BLOOD ORDERABLES Final Result Performing Organization Address [facility] de Phone Number [facility] [address] [place] [address], * Pap Smear (06/17/2020 12:00 AM EDT) Swab us Historical Provider LAB CYTOLOGY ORDERABLES F inal Result IMAGING * Hm Colonoscopy (02/03/2020) Colonoscopy normal us Historical Provider HEALTH MAINTENANCE Final Result from Last 3 Months or Most Recently Relevant to Health Maintenance Insurance [facility] , [address] [place] [address] Advance Directives Documents on File Type Date Recorded Patient Hydrochloric Acid Operator Expl anation Advance Directives and Living Will 08/22/2023 Health Care Proxy 08/22/23 Care Teams [employer] Solutions Specialist Relationship Specialty Start Date End Date [place], MD Risa [address] [place] [address] PCP - General Family Medicine 02/12/18 Filomena Davidson PharmD [address] [place], [place] Pharmacist Internal Medicine 02/20/22
--- OUTSIDE RECORDS SUMMARY | 2025-02-02 09:16 | XMS_ITS | Encounter Summary ---
Author Organization [employer] Address [address] [facility] 7 [place] [address] Care Team Providers Care Legal Office Administrator Name Role Phone Risa Lovett MD Primary Care Provider + [phone] Filomena Davidson PharmD Unavailable Encounter Details Date Type Department Care Team ([facility] Contact Info) Description 03/17/2022 Abstract [facility] [address] [place] [phone] Risa Lovett MD [address] [place] [address] [phone] Social History Tobacco Use Types Packs/Day Years [...] Department Care Team (Late Contact Info) Description 02/04/2025 11:30 AM EST Office Visit [facility] [address] [place] [phone] Risa Lovett MD [address] [place] [address] [phone] documented as of this encounter Goals Goal [...] on filedocumented in this encounter Care Teams Legal Office Administrator Relationship Specialty Start Date End Date Risa Lovett MD [address] [place] [address] PCP - General Family Medicine 02/12/18 Filomena Davidson PharmD [address] [place] [address] Pharmacist Internal Medicine 02/20/22 documented as of this encounter
--- OUTSIDE RECORDS SUMMARY | 2025-02-02 09:16 | XMS_ITS | Encounter Summary ---
Author Organization [employer] Address [address] [facility] [address] [place] [address] Care Team Providers Care Mounter Name Role Phone Risa Lovett MD Primary Care Provider + [phone] Filomena Davidson PharmD Unavailable [phone] Encounter Details Date Type Department Care Team (Late st Contact Info) Description 04/24/2024 Orders Only [facility] [address] [place], [place] [phone] Risa Lovett MD [address] [place], [place] [phone] Social History Tobacco Use Types Packs/Day Years [...] Description 02/04/2025 11:30 AM EST Office Visit [facility] [address] [place] [phone] Risa Lovett MD [address] [place] [phone] documented as of this encounter Goals Goal Patient Goal Type Associated Problems Recent Progress Patient-Stated? Author Blood Pressure < 140/90 Blood Pressure 140/90( 025 2:52 PM EST) No Filomena Rutherford PharmTaylor Follow the DASH diet Diet No Filomena Rutherford, PharmD documented as of this encounter Visit Diagnoses Not on filedocumented in this encounter Additional Health Concerns Assessment Noted Time PHQ-9 Depression Total Score: 2 11/19/19 24 9:08 AM EDT documented as of this encounter Care Teams Mounter Relationship Specialty Start Date End Date Risa Lovett MD [address] [place] [address] [phone] PCP - General Family Medicine 02/12/18 Filomena Davidson, PharmD [address] [place] [phone] Pharmacist Internal Medicine 02/20/22 documented as of this encounter
--- OUTSIDE RECORDS SUMMARY | 2025-02-02 09:16 | XMS_ITS | Patient Health Record ---
Author Organization [facility] Address [address] [place] [address] Care Team Providers Care Machine Bookkeeper Name Role Phone Risa Lovett MD Primary Care Provider Britni Agustin Wilkerson Jr Unavailable Reason For Referral No Information Medications Medication SIG (Take, Route, Fr equency, Duration) Notes Start Date End Date Status Multivitamin Adult A ctive Immunizations Vaccine Route Administration Date Status Comme nts Influenza Unknown 10/14/2019 Administered Social History Tobacco Use: Social History Observation Description Date Details (start date - stop date) Never Smoker NA - NA Social History Drugs/Alcohol: Social Info Question Answer Notes Alcohol Screen Did you have a drink containing alcohol in the past year? No Points 0 Interpretation Negative Tobacco Use: Social Info Question Answer Notes Tobacco Use/Smoking Patient is a nonsmoker Additional Details Category Social Info Options Details Miscellaneous: Marital status: Occupation: kitchen attendan t Problems Problem Type SNOMED Code ICD Code Onset Dates Problem Status W/U Status Risk Notes Problem Colon cancer screening (945054282) Colon cancer screening (Z12.11) Active confirmed Problem Pre-procedure evaluation check (471023943) Encounter for other preprocedural examination (Z01.818) Active confirmed Plan Of Treatment Future Test Test Name Order Date COLONOSCOPY 01/22/2020 Insurance Providers Payer Name Payer Address Payer Phone Subscriber Number Group Number Insured Name Patient Relationship to Insured Coverage Start Date Coverage End Date [facility] [address] [place] [phone] [id number] KENNEY FLORES Self - patient is the insured Medical (General) History Medical History History ICD Code Denies HI,DM,CVA,Lung disease,renal dise ase Surgical History Surgery Date(Month/Year) breast implants 2007 breast implant removal 2010 kidneystones [phone] nose 2002
[2025-02-02 11:40] LABS: Alanine Aminotransferase 27 U/L (0-31); Albumin Level 4.4 g/dL (3.5-5.0); Alkaline Phosphatase 89 U/L (39-117); Aspartate Amino Transferase 24 U/L (5-31); Cholesterol 134 mg/dL (<200); HDL Cholesterol 43 mg/dL (>40); Total Protein 6.9 g/dL (6.5-8.0); Triglycerides 144 mg/dL (<150)
== END 2025-02-02 08:49 | disposition home or self-care (01) ==
LOC: HO.HHCL 08:48
PROVIDERS: PCP Family Medicine; Visit Provider Family Medicine
DX: E78.5 Hyperlipidemia, unspecified (principal)
CPT/HCPCS: 36415; 80061; 80076

== ENCOUNTER 2025-02-07 07:37 | Outpatient (REF) | payer OTHER, SELFPAY ==
--- OUTSIDE RECORDS SUMMARY | 2025-02-04 11:30 | XMS_ITS | Encounter Summary ---
Author Organization [employer] Address [address] [facility] [address] [place] [address] Care Team Providers Care Scientific Associate Name Role Phone Risa Lovett MD Primary Care Provider + [phone] Filomena Davidson PharmD Unavailable [phone] Reason for Visit * Reason Comments Follow-up Encounter Details Date Type Department Care Team ([facility] Contact Info) Description 02/04/2025 11:30 AM EST Office Visit [facility] [address] [place], [place] [phone] Risa Lovett MD [address] [place], [place] [phone] Dyslipidemia (Primary Dx); Primary hypertension Social History Tobacco Use Types Packs/Day Years [...] AM EDT documented as of this encounter Last Filed Vital Signs Vital Sign Reading Time Taken Comments Blood Pressure 120/86 02/04/2025 11:22 AM EST Pulse 96 02/04/2025 11:22 AM EST Temperature 37.2 C (98.9 F) 02/04/2025 11:22 AM EST Respiratory Rate 20 02/04/2025 11:22 AM EST Oxygen Saturation 97% 02/04/2025 11:22 AM EST Inhaled Oxygen Concentration - - Weight 86.4 kg (190 lb 6.4 oz) 02/04/2025 11:22 AM EST Height - - Body Mass Index 33.73 12/24/2024 2:17 PM EST documented in this encounter Progress Notes * Risa Lovett MD - 02/04/2025 11:30 AM EST Subjective Callie is a 54 y.o. female with h/o breast augmentation, dysfunctional uterine bleeding, HTN, dyslipidemia, and uterine stones who presents to the office today for blood pressure check and follow up labs Interim history: Last PCP visit 12/24/2024 for annual exam Current concerns: Hypertension Callie No has a history of hypertension. She monitors her blood pressure at home, with reported values typically around 125/91 and 137/90, and the highest recorded at 143/98. She notes that her blood pressure tends to be higher in the afternoon after returning from work, but in the morning it islower, with a value of 127. She is currently taking amlodipine for blood pressure control. Hyperlipidemia She has a history of elevated cholesterol, with previous total cholesterol values reported as high as 227 and 300. She is currently taking atorvastatin 20 mg and fish oil for cholesterol management. She reports improvement in her cholesterol levels compared to prior years. Family history of diabetes She reports a family history of diabetes, stating that her brother and father have diabetes. She also mentions that her grandmother had good health. Social History Tobacco: denied Drugs: none Alcohol: No Review of Systems Constitutional: Negative for fatigue, fever and unexpected weight change. Respiratory: Negative for cough. Cardiovascular: Negative for chest pain. Gastrointestinal: Negative for abdominal pain. Genitourinary: Negative for difficulty urinating. Current Outpatient Medications: amLODIPine (Norvasc) 5 MG tablet, TAKE 1 TABLET BY MOUTH ONCE DAILY, Disp: 90 tablet, Rfl: 3 atorvastatin (Lipitor) 20 MG tablet, Take 1 tablet (20 mg) by mouth Once per day., Disp: 30 tablet,Rfl: 11 multivitamin (Theragran) tablet, take 1 tablet by oral route every day with food, Disp: , Rfl: omega-3, EPA + DHA, (fish oil) 1000 MG capsule, Take 2 capsules (2,000 mg) by mouth 2 times daily.,Disp: 120 capsule, Rfl: 11 No Known Allergies Past Medical History: Diagnosis Date Diverticulosis of sigmoid colon 02/10/2020 Dyslipidemia 02/20/2022 Lab Results Component Value Date CHOL 182 11/13/2023 CHOL 204 (H) 11/28/2022 TRIG 198 (H) 11/13/2023 TRIG 164 (H) 11/28/2022 HDL 34 (L) 11/13/2023 HDL 39 (L) 11/28/2022 LDLCHOLCAL 109 (H) 11/13/2023LDLCHOLCAL 133 (H) 11/28/2022 -continue lifestyle modificatio Postmenopausal 11/19/2023 Final Menstrual Period: 2019 Symptoms: none Risk factors for osteoporosis: none -Discussed with thepatient all the options for osteoporosis prevention and advised: -Ca+D supplements 1200 mg po qd/800 MIU -Weight bearing exercises - Adequate protein intake -Supplements may include magnesium, omega-3 Primary hypertension 08/26/2021 -Blood pressure is at goal -Continue lifestyle modifications -Continue current medications Past Surgical History: Procedure Laterality Date BREAST SURGERY reduction TUBAL LIGATION Family History Problem Relation Name Age of Onset Diabetes Mother Hypertension Mother Diabetes Father Diabetes Brother Hypertension Brother Objective Visit Vitals BP 120/86 (BP Location: Left arm, Patient Position: Sitting, BP Cuff Size: Adult) Pulse 96 Temp 98.9 ??F (37.2 ??C) (Oral) Resp 20 Wt 190 lb 6.4 oz (86.4 kg) SpO2 97% BMI 33.73 kg/m?? Smoking Status Never BSA 1.96 m?? Physical Exam Constitutional: Appearance: Normal appearance. HENT: Head: Normocephalic. Right Ear: Tympanic membrane normal. Left Ear: Tympanic membrane normal. Mouth/Throat: Pharynx: Oropharynx is clear. Eyes: Pupils: Pupils are equal, round, and reactive to light. Cardiovascular: Rate and Rhythm: Normal rate and regular rhythm. Heart sounds: Normal heart sounds. Pulmonary: Effort: Pulmonary effort is normal. Breath sounds: Normal breath sounds. Chest: Breasts: Krishan Score is 5. Breasts are symmetrical. Right: Normal. No inverted nipple, mass, nipple discharge or skin change. Left: Normal. No inverted nipple, mass, nipple discharge or skin change. Comments: Well healed scars from previous breast reduction surgery. Abdominal: General: Abdomen is flat. Palpations: There is no mass. Tenderness: There is no abdominal tenderness. Musculoskeletal: General: Normal range of motion. Cervical back: Normal range of motion and neck supple. Lymphadenopathy: Cervical: No cervical adenopathy. Upper Body: Right upper body: No supraclavicular or axillary adenopathy. Left upper body: No supraclavicular or axillary adenopathy. Skin: General: Skin is warm and dry. Neurological: General: No focal deficit present. Mental Status: She is alert. Psychiatric: Behavior: Behavior normal. Office Visit on 02/04/2025 Component Date Value Triglycerides 02/02/2025 144 Cholesterol 02/02/2025 134 LDL Cholesterol Calculat* 02/02/2025 63 HDL Cholesterol 02/02/2025 43 Bilirubin, Total 02/02/2025 0.4 Bilirubin, Direct 02/02/2025 0.2 Aspartate Amino Transfer* 02/02/2025 24 Alanine Aminotransferase 02/02/2025 27 Total Protein 02/02/2025 6.9 Albumin Level 02/02/2025 4.4 Alkaline Phosphatase 02/02/2025 89 Office Visit on 12/24/2024 Component Date Value Triglycerides 12/22/2024 171 (H) Cholesterol 12/22/2024 227 (H) LDL Cholesterol Calculat* 12/22/2024 150 (H) HDL Cholesterol 12/22/2024 43 Bilirubin, Total 12/22/2024 0.4 Bilirubin, Direct 12/22/2024 0.1 Aspartate Amino Transfer* 12/22/2024 27 Alanine Aminotransferase 12/22/2024 31 Total Protein 12/22/2024 7.2 Albumin Level 12/22/2024 4.5 Alkaline Phosphatase 12/22/2024 91 Sodium 12/22/2024 142 Potassium 12/22/2024 3.9 Chloride 12/22/2024 110 (H) Carbon Dioxide 12/22/2024 25 Anion Gap 12/22/2024 11 (L) Urea Nitrogen (BUN) 12/22/2024 15 Creatinine, Serum 12/22/2024 0.62 Estimated Glomerular Joseph* 12/22/2024 >60 Glucose 12/22/2024 85 Calcium 12/22/2024 9.4 54 y.o. female physical exam. Assessment & Plan Dyslipidemia Lab Results Component Value Date CHOL 134 02/02/2025 CHOL 227 (H) 12/22/2024 CHOL 182 11/13/2023 TRIG 144 02/02/2025 TRIG 171 (H) 12/22/2024 TRIG 198 (H) 11/13/2023 HDL 43 02/02/2025 HDL 43 12/22/2024 HDL 34 (L) 11/13/2023 LDLCHOLCAL 63 02/02/2025 LDLCHOLCAL 150 (H) 12/22/2024 LDLCHOLCAL 109 (H) 11/13/2023 -continue lifestyle modification -continue fish oil -atorvastatin 20mg started 12/24/24 due to ASCVD risk with excellent results Orders: Lipid Panel, Standard; Future Hepatic Function Panel; Future Primary hypertension -Blood pressure is at goal -Continue lifestyle modifications -Continue current medications Follow up in about 1 year (around 02/04/2026) for physical. This note was drafted using Ambient (AI) technology. The patient/patient's guardian has been informed and has consented to the use of this technology: Yes documented in this encounter Miscellaneous Notes * Assessment & Plan Note - Risa Lovett MD - 02/04/2025 11:30 AM EST Associated Problem(s): Dyslipidemia Lab Results Component Value Date CHOL 134 02/02/2025 CHOL 227 (H) 12/22/2024 CHOL 182 11/13/2023 TRIG 144 02/02/2025 TRIG 171 (H) 12/22/2024 TRIG 198 (H) 11/13/2023 HDL 43 02/02/2025 HDL 43 12/22/2024 HDL 34 (L) 11/13/2023 LDLCHOLCAL 63 02/02/2025 LDLCHOLCAL 150 (H) 12/22/2024 LDLCHOLCAL 109 (H) 11/13/2023 -continue lifestyle modification -continue fish oil -atorvastatin 20mg started 12/24/24 due to ASCVD risk with excellent results Orders: Lipid Panel, Standard; Future Hepatic Function Panel; Future * Assessment & Plan Note - Risa Lovett MD - 02/04/2025 11:30 AM EST Associated Problem(s): Primary hypertension -Blood pressure is at goal -Continue lifestyle modifications -Continue current medications documented in this encounter Plan of Treatment Not on file documented as of this encounter Goals Goal Patient Goal Type Associated Problems Recent Progress Patient-Stated? Author Blood Pressure < 140/90 Blood Pressure 120/86( 025 11:22 AM EST) Filomena Villegas, PharmD Follow the DASH diet Diet No Filomena Rutherford PharmD documented as of this encounter Procedures Procedure Name Priority Date/Time Associated Diagnosis Comments HEPATIC FUNCTION PANEL Routine 02/02/2025 8:53 AM EST Dyslipidemia LIPID PANEL, STANDARD Routine 02/02/2025 8:53 AM EST Dyslipidemia documented in this encounter Results * Hepatic Function Panel (02/02/2025 8:53 AM EST) Bilirubin, Total 0.4 0.0 - 1.0 mg/dL [facility] Bilirubin, Direct 0.2 0.0 - 0.5 mg/dL [facility] Aspartate Amino Transferase 24 5 - 31 U/L [facility] Alanine Aminotransferase 27 0 - 31 U/L [facility] Total Protein 6.9 6.5 - 8.0 g/dL [facility] Albumin Level 4.4 3.5 - 5.0 g/dL [facility] Alkaline Phosphatase 89 39 - 117 U/L [facility] Blood Venous blood specimen / Unknown 02/02/2025 8:53 AM EST 02/02/2025 11:02 AM EST us Risa Lovett MD LAB BLOOD ORDERABLES Final Result [facility] [address] [place] [phone] * Lipid Panel, Standard (02/02/2025 8:53 AM EST) Triglycerides 144 <150 mg/dL [facility] Comment:Desirable Triglyceri de: less than 150 mg/dLBorderline High Triglyceride 150-199 mg/dLHigh Triglyceride: 200-499 mg/dLVery High Triglyceride: greater than or equal to 5OO mg/dL Cholesterol 134 <200 mg/dL [facility] Comment:Desirable Cholestero l: less than 200 mg/dLBorderline High Cholesterol: 200-239 mg/dLHigh Cholesterol: greater than 239 mg/dL LDL Cholesterol Calculated 63 <100 mg/dL [facility] Comment:Desirable LDL: less than 100 mg/dLNear Optimal/Above Optimal LDL: 110- 129 mg/dLBorderline High LDL: 130-159 mg/dLHigh LDL: 160-189 mg/dLVery High LDL: greater than or equal to 190 mg/dL HDL Cholesterol 43 >40 mg/dL [facility] Comment:Desirable HDL: great er than 40 mg/dL Note: This HDL assay may give artificially low results in patients with liver disease. Blood Venous blood specimen / Unknown 02/02/2025 8:53 AM EST 02/02/2025 11:02 AM EST Risa Lovett MD LAB BLOOD ORDERABLES Final Result [facility] [address] [place] [phone] [phone] documented in this encounter Visit Diagnoses Diagnosis Dyslipidemia- Primary Other and unspecified hyperlipidemia Primary hypertension Unspecified essential hypertension documented in this encounter Additional Health Concerns Assessment Noted Time PHQ-9 Depression Total Score: 0 12/25/19 25 2:18 PM EST documented as of this encounter Care Teams Scientific Associate Relationship Specialty Start Date End Date Risa Lovett MD [address] [place] [id number] PCP - General Family Medicine 02/12/18 Filomena Davidson PharmD [address] [place] [phone] Pharmacist Internal Medicine 02/20/22 documented as of this encounter
--- NOTE | ~2025-02-07 | MM_ITS ---
EXAMINATION: MM SCREENING DIGITAL BREAST TOMOSYNTHESIS, BILATERAL CLINICAL INFORMATION: Screening. Asymptomatic. COMPARISON: Mammography: Comparison is made with available priors TECHNIQUE: Digital breast mammography with tomosynthesis is performed in both the craniocaudal and mediolateral oblique views along with computer-aided detection (CAD). FINDINGS: The breasts are heterogeneously dense, which may obscure small masses. Left: There are no significant masses, abnormal calcifications, or other abnormalities. Right: Focal asymmetry retroareolar region posterior depth. No suspicious other abnormal findings. MM/MM tomosynthesis screening BI IMPRESSION: Additional imaging is recommended ASSESSMENT: BI-RADS Category 0: Incomplete - Need additional Imaging Evaluation RECOMMENDATION: 1. Additional views of the right breast. 2. Targeted ultrasound if warranted after review of the additional views. 3. Radiology department staff will contact the patient for additional imaging. Additional Imaging required Electronically signed by: Mely Viveros DO 02/09/2025 05:50 PM [facility] [place]
--- OUTSIDE RECORDS SUMMARY | 2025-02-07 07:41 | XMS_ITS | Encounter Summary ---
Author Organization [employer] Address [address] [facility] [address] [place] [address] Care Team Providers Care Helmet Binder Name Role Phone Risa Lovett MD Primary Care Provider +- [phone] Filomena Davidson PharmD Unavailable [phone] Reason for Visit * Reason Onset Date Comments Results 02/02/2025 Encounter Details Date Type Department Care Team ([facility] st Contact Info) Description 02/02/2025 Results Follow-Up [facility] MEDICINE [address] [place] [address] Risa Lovett MD [address] [place] [address] Lipid Panel, Standard, Hepatic Function Panel Social History Tobacco Use Types Packs/Day Years [...] encounter Miscellaneous Notes * Telephone Encounter - Shellie Angel RN - 02/02/2025 1:26 PM EST Return call placed to the pt with [facility] community center worker #[id number] to inform of the pt blood work results below showing good cholesterol levels and pt was advised to continue on medications as prescribed. Pt reminded of upcoming appointment with PCP on 02/04/2025 at 1130 and pt was agreeable and had no further questions or concerns. ----- Message from Risa Lovett MD sent at 02/02/2025 12:25 PM EST ----- Please let Callie know cholesterol profile looks amazing. Please keep taking current meds and congratulations on the great work! ----- Message ----- From: Interface, Lab Results In Sent: 02/02/2025 11:40 AM EST To: Risa Lovett MD documented in this encounter Plan of Treatment Not on file documented as of this encounter Goals Goal Patient Goal Type Associated Problems Recent Progress Patient-Stated? Author Blood Pressure < 140/90 Blood Pressure 120/86( 025 11:22 AM EST) No Filomena Rutherford, PharmD Follow the DASH diet Diet No Filomena Rutherford PharmD documented as of this encounter Visit Diagnoses Not on filedocumented in this encounter Additional Health Concerns Assessment Noted Time PHQ-9 Depression Total Score: 0 12/25/19 25 2:18 PM EST documented as of this encounter Care Teams Helmet Binder Relationship Specialty Start Date End Date Risa Lovett MD [address] [place] [address] PCP - General Family Medicine 02/12/18 Filomena Davidson PharmD [address] [place] [address] Pharmacist Internal Medicine 02/20/22 documented as of this encounter
--- OUTSIDE RECORDS SUMMARY | 2025-02-07 07:41 | XMS_ITS | Encounter Summary ---
Author Organization [employer] Address [address] [facility] 7[address] [place] [address] Care Team Providers Care Video Production Specialist Name Role Phone Risa Lovett MD Primary Care Provider +- [phone] Filomena Davidson PharmD Unavailable [phone] Encounter Details Date Type Department Care Team (Latest Contact Info) Description 02/04/2025 Travel Social History Tobacco Use Types Packs/Day Years [...] as of this encounter Plan of Treatment Not on file documented as of this encounter Goals Goal Patient Goal Type Associated Problems Recent Progress Patient-Stated? Author Blood Pressure < 140/90 Blood Pressure 120/86( 025 11:22 AM EST) No Filomena Rutherford PharmD Follow the DASH diet Diet No Filomena Rutherford PharmD documented as of this encounter Visit Diagnoses Not on filedocumented in this encounter Additional Health Concerns Assessment Noted Time PHQ-9 Depression Total Score: 0 12/25/19 25 2:18 PM EST documented as of this encounter Care Teams Video Production Specialist Relationship Specialty Start Date End Date Risa Lovett MD [address] [place] [address] PCP - General Family Medicine 02/12/18 Filomena Davidson PharmD [address] [place] [phone] Pharmacist Internal Medicine 02/20/22 documented as of this encounter
--- OUTSIDE RECORDS SUMMARY | 2025-02-07 07:41 | XMS_ITS | Encounter Summary ---
Author Organization [employer] Address [address] [facility] 7[address] [place] [address] Care Team Providers Care Operations Lieutenant Name Role Phone Risa Lovett MD Primary Care Provider +- [phone] Filomena Davidson PharmD Unavailable [phone] Encounter Details Date Type Department Care Team (Latest Contact Info) Description 02/03/2025 Travel Social History Tobacco Use Types Packs/Day [...] documented as of this encounter Care Teams Operations Lieutenant Relationship Specialty Start Date End Date Risa Lovett MD [address] [place] [address] PCP - General Family Medicine 02/12/18 Filomena Davidson PharmD [address] [place] [phone] Pharmacist Internal Medicine 02/20/22 documented as of this encounter
--- OUTSIDE RECORDS SUMMARY | 2025-02-07 07:41 | XMS_ITS | Patient Health Record ---
Author Organization [facility] Address [address] [place] [address] Care Team Providers Care Semi Driver Name Role Phone Risa Lovett MD Primary [...] Status Risk Notes Problem Colon cancer screening (507276089) Colon cancer screening (Z12.11) Active confirmed Problem Pre-procedure evaluation check (043663934) Encounter for other preprocedural examination (Z01.818) Active confirmed Plan Of Treatment Future Test Test Name Order Date COLONOSCOPY 01/22/2020 Insurance Providers Payer Name Payer Address Payer Phone Subscriber Number Group Number Insured Name Patient Relationship to Insured Coverage Start Date Coverage End Date [facility] [address] [place] [phone] [id number] KENNEY FLORES Self - patient is the insured Medical (General) History Medical History History ICD Code Denies VA,DM,CVA,Lung disease,renal dise ase Surgical History Surgery Date(Month/Year) breast implants 2007 breast implant removal 2010 kidneystones [id number] nose 2002
--- OUTSIDE RECORDS SUMMARY | 2025-02-07 07:41 | XMS_ITS | Encounter Summary ---
Author Organization [employer] Address [address] [facility] 7t [place] [address] Care Team Providers Care Cafeteria Server Name Role Phone Risa Lovett MD Primary Care Provider + [phone] Filomena Davidson PharmD Unavailable [phone] Encounter Details Date Type Department Care Team ([facility] st Contact Info) Description 03/17/2022 Abstract [facility] MEDICINE [address] [place], [place] [phone] Risa Lovett MD [address] [place], [place] [phone] Social History Tobacco Use Types Packs/Day Years [...] Pressure 120/86( 025 11:22 AM EST) No Piers-Gambl e, Filomena, PharmD Follow the DASH diet Diet No Piers-Gambl e, Filomena, PharmD documented as of this encounter Procedures Procedure Name Priority Date/Time Associated Diagnosis Comments HM MAMMOGRAPHY Routine 12/19/2021 PAP SMEAR Routine 06/17/2020 12:00 AM EDT COLONOSCOPY Routine 02/03/2020 documented in this encounter Results * Hm Mammography (12/19/2021) HM Mammogram BIRADS 2 Anatomical Region Laterality Modality Other Historical Provider HEALTH MAINTENANCE Final Result * Pap Smear (06/17/2020 12:00 AM EDT) Swab Historical Provider LAB CYTOLOGY ORDERABLES F inal Result IMAGING * Hm Colonoscopy (02/03/2020) Colonoscopy normal Historical Provider HEALTH MAINTENANCE Final Result documented in this encounter Visit Diagnoses Not on filedocumented in this encounter Care Teams Cafeteria Server Relationship Specialty Start Date End Date Risa Lovett MD [address] [place] [address] PCP - General Family Medicine 02/12/18 Filomena Davidson, KanchanD [address] [place] [address] Pharmacist Internal Medicine 02/20/22 documented as of this encounter
--- OUTSIDE RECORDS SUMMARY | 2025-02-07 07:41 | XMS_ITS | Clinical Summary ---
Author Organization [employer] Address [address] [facility] 7[address] [place] [address] Care Team Providers Care Rattling Machine Tender Name Role Phone Risa Lovett MD Primary Care Provider + [phone] Filomena Davidson PharmD Unavailable +- [phone] Allergies No known active allergies Medications multivitamin [...] Diagnosed Date Cardiac risk counseling 12/24/2024 Overview (02/04/2025): ASCVD risk 12/24/24 livetime 39% Current 4.9% [...] 12/24/25 -followed by Dr. Kenneth Miranda of [facility] -dental home is [facility] in [facility] proxy filed 08/22/23 Assessment & Plan (12/24/2024 2:54 PM EST): -next physical exam due after 12/24/25 -followed by Dr. Kenneth Miranda of [facility] -dental home is [facility] in [facility] proxy filed 08/22/23 Assessment & Plan (11/19/2023 9:05 AM EDT): -next physical exam due after 11/18/2024 -followed by Dr. Kenneth Miranda of [facility] ] -dental home is [facility] in [facility] proxy filed 08/22/23 Assessment & Plan (08/22/2023 3:18 PM EDT): -next physical exam due after 11/16/2023 -eye care facilitated by Dr. Mireles -dental home is in [facility] proxy filed 08/22/23 Assessment & Plan (11/15/2022 11:07 AM EDT): -next physical exam due after 11/16/2023 -eye care facilitated by Dr. Mireles -dental home is in [place] Dyslipidemia 02/20/2022 Overview (02/04/2025): Lab Results Component Value Date CHOL 134 [...] due to ASCVD risk with excellent results Assessment & Plan (02/04/2025 11:38 AM EST): Lab Results Component Value Date CHOL 134 [...] Hepatic Function Panel; Future Assessment & Plan (12/24/2024 2:54 PM EST): [...] modifications -Continue current medications Assessment & Plan (02/04/2025 11:38 AM EST): -Blood pressure is at goal -Continue lifestyle [...] Encounters Date Type Department Care Team Description 02/04/2025 11:30 AM EST Office Visit [facility] [address] [place] [phone] Risa Lovett MD Dyslipidemia (Primary Dx); Primary hypertension 02/04/2025 Travel 02/03/2025 Travel 02/03/[address] [address] Risa Lovett MD CHART PREP 02/03/[address] [address] Risa Lovett MD chartprep 02/02/2025 Results Follow-Up [address] [address] Risa Lovett MD Lipid Panel, Standard, Hepatic Function Panel 12/25/[address] [address] Risa Lovett MD Dyslipidemia 12/24/2024 2:15 PM EST Office Visit [address] [address] Risa Lovett MD Dyslipidemia (Primary Dx); Primary hypertension; Class 1 obesity due to excess calories with serious comorbidity and body mass index (BMI) of 34.0 to 34.9 in adult; Dietary counseling; Exercise counseling; Encounter for vaccination; Encounter for immunization; Cardiac risk counseling; Other specified health status 12/24/2024 Travel 12/23/2024 Travel 12/23/[address] [address] Risa Lovett MD chart prep 12/23/2024 Results Follow-Up [facility] [address] [address] Risa Lovett MD Lipid Panel, Standard, Hepatic Function Panel, Basic Metabolic Panel 12/19/[address] [address] Risa Lovett MD lab reminder 12/18/2024 Telephone [facility] [address] [address] Risa Lovett MD 12/16/2024 Patient Outreach [address] [address] Risa Lovett MD Pre-visit Planning (Pre-visit planning [...] 6.4 oz) 02/04/2025 11:22 AM EST Height 160 cm (5' 3 ) 12/24/2024 2:17 PM EST Body Mass Index 33.73 12/24/2024 2:17 PM EST Plan of Treatment Health Maintenance Due Date Last Done Comments CT Colonography 1970 FIT DNA/Cologuard 1970 FIT 1970 FOBT 1970 Sigmoidoscopy 1970 Cervical Cancer Screening 06/17/2025 HPV/Cotest 06/17/2025 Pap Smear 06/17/2025 06/17/2020 Disability Screening 12/23/2025 12/23/2024 Alcohol/Substance Use Screening 12/24/2025 12/24/2024 Depression Screening 12/24/2025 12/24/2024, 12/25/19 25 SDOH Screening 12/24/2025 12/24/2024 Mammogram 01/17/2026 01/18/2024, 12/13, 12/19/2021, Additional history exists Tobacco Screening 02/04/2026 02/04/2025 Colonoscopy 02/02/2030 02/03/2020 Colorectal Cancer Screening 02/02/2030 Lipid Panel 02/02/2030 02/02/2025, 12/13, 11/13/2023, Additional history exists DTaP/Tdap/Td Vaccines (3 - Td or Tdap) [...] 025 11:22 AM EST) No Filomena Rutherford, PharmTaylor Follow the DASH diet Diet No PierFilomena Ordonez PharmD Procedures Procedure Name Priority Date/Time Associated Diagnosis Comments HEPATIC FUNCTION PANEL Routine 02/02/2025 8:53 AM EST Dyslipidemia LIPID PANEL, STANDARD Routine 02/02/2025 8:53 AM EST Dyslipidemia BASIC METABOLIC PANEL Routine 12/22/2024 8:06 AM [...] Health Maintenance Results * Hepatic Function Panel (02/02/2025 8:53 AM EST) Only the most recent of2 resultswithin the time period is included. Bilirubin, Total 0.4 0.0 - 1.0 mg/dL [facility] Bilirubin, Direct 0.2 0.0 - 0.5 mg/dL [facility] Aspartate Amino Transferase 24 5 - 31 U/L [facility] Alanine Aminotransferase 27 0 - 31 U/L [facility] Total Protein 6.9 6.5 - 8.0 g/dL [facility] Albumin Level 4.4 3.5 - 5.0 g/dL [facility] Alkaline Phosphatase 89 39 - 117 U/L [facility] Blood Venous blood specimen / Unknown 02/02/2025 8:53 AM EST 02/02/2025 11:02 AM EST Risa Lovett MD LAB BLOOD ORDERABLES Final Result Performing Organization Address [facility] Co de Phone Number [facility] [address] [place] [address] [phone] * Lipid Panel, Standard (02/02/2025 8:53 AM EST) Only the most recent of2 resultswithin the time period is included. Triglycerides 144 <150 mg/dL [facility] Comment:Desirable Triglyceri de: less than 150 mg/dLBorderline High Triglyceride 150-199 mg/dLHigh Triglyceride: 200-499 mg/dLVery High Triglyceride: greater than or equal to 5OO mg/dL Cholesterol 134 <200 mg/dL [facility] Comment:Desirable Cholestero l: less than 200 mg/dLBorderline High Cholesterol: 200-239 mg/dLHigh Cholesterol: greater than 239 mg/dL LDL Cholesterol Calculated 63 <100 mg/dL [facility] Comment:Desirable LDL: less than 100 mg/dLNear Optimal/Above Optimal LDL: 110- 129 mg/dLBorderline High LDL: 130-159 mg/dLHigh LDL: 160-189 mg/dLVery High LDL: greater than or equal to 190 mg/dL HDL Cholesterol 43 >40 mg/dL [facility] Comment:Desirable HDL: great er than 40 mg/dL Note: This HDL assay may give artificially low results in patients with liver disease. Blood Venous blood specimen / Unknown 02/02/2025 8:53 AM EST 02/02/2025 11:02 AM EST Risa Lovett MD LAB BLOOD ORDERABLES Final Result Performing Organization Address City/[facility]/ZIP Co de Phone Number [facility] [address] [place] [phone] * (ABNORMAL) Basic Metabolic Panel (12/22/2024 8:06 AM EST) Sodium 142 135 - 145 mmol/L [facility] Potassium 3.9 3.3 - 5.1 mmol/L [facility] Chloride 110(H) 96 - 108 mmol/L [facility] Carbon Dioxide 25 22 - 29 mmol/L [facility] Anion Gap 11(L) 12 - 20 [facility] Urea Nitrogen (BUN) 15 9 - 16 mg/dL [facility] Creatinine, Serum 0.62 0.5 - 1.4 mg/dL [facility] Estimated Glomerular Filt Rate >60 [facility] Comment:Chronic Kidney Disea se: Estimated GFR < 60 mL/min/1.61v0Wzxeal Kidney Disease: Estimated GFR < 15 mL/min/1.73m2 Glucose 85 60 - 115 mg/dL [facility] Calcium 9.4 8.4 - 10.2 mg/dL [facility] Blood Venous blood specimen / Unknown 12/22/2024 8:06 AM EST 12/22/2024 11:22 AM EST Risa Lovett MD LAB BLOOD ORDERABLES Final Result Performing Organization Address City/State/[facility] Co de Phone Number [facility] [address] [place] [phone] * BI Mammogram Screening Tomosynthesis Bilateral (01/18/2024 11:33 AM EST) Anatomical Region Laterality Modality Breast Bilateral Mammography 01/18/2024 11:3 3 AM EST Narrative 01/24/2024 12:20 PM EST [facility] [address] [place] [address] Mammography Report Signed Patient: Callie No MR#: [id number] : 1970 Acct:[id number] Age/Sex: 53 / F ADM Date: 01/18/24 Loc: HO.MAMMO Attending Dr: Risa Lovett MD Ordering Physician: Risa Lovett MD Results: 2B enign Findings Date of Service: 01/18/24 Follow Up: 1 Year From Orig inal Mammogram Procedure(s): MM tomosynthesis screening BI Accession Number(s): [id number] cc: Risa Lovett MD EXAMINATION: MM SCREENING [...] by: Mely Viveros DO 01/24/2024 12:17 PM [facility] [place] Dictated By: Mely Viveros DO Signed By: <Electronically signed by Mely Viveros DO in OV> 01/24/24 1217 DD/ 1133 TD/TT: 01/18/24 1150 Pipe Organ Mechanic Apprentice: Procedure Note Donotuseinterpreter, Image - 01/25/2024 [facility] [address] [place] [address] Mammography Report Signed Patient: Callie No TMR#: [id number] : 1970Acct:[id number] Age/Sex: 53 / FADM Date: 01/18/24 Loc: HO.MAMMO Attending Dr: Risa Lovett MD Ordering Physician: Risa Lovett MDResults: 2B enign Findings Date of Service: 01/18/24Follow Up: 1 Year From Orig inal Mammogram Procedure(s): MM tomosynthesis screening BI Accession Number(s): [id number] cc: Risa Lovett MD EXAMINATION: MM SCREENING [...] by: Mely Viveros DO 01/24/2024 12:17 PM [facility] [place] Dictated By: Mely Viveros DO Signed By: <Electronically signed by Mely Viveros DO in OV> 01/24/24 1217 DD/ 1133 TD/TT: 01/18/24 1150 Pipe Organ Mechanic Apprentice: Risa Lovett MD IM BI PROCEDURES Edited R esult - Final * HEPATITIS C AB W/REFL TO HCV RNA, QN, PCR (08/23/2021 8:11 AM EDT) HEPATITIS C ANTIBODY NON-REACT [facility] NON-REACT [facility] INDEX 0.05 <1.00 [facility] Comment: HCV antibody was non-reactive. There is no laboratory evidence of HCV infection. In most cases, no further action is required. However, if recent HCV exposure is suspected, a test for HCV RNA (test code 25748) is suggested. For additional information please refer to http://education.TestSoup/faq/LLH78b0 (This link is being provided for informational/ educational purposes only.) 08/23/2021 8:11 AM EDT Risa Lovett MD HISTORICAL/NON ORDERABLE L ABS Final Result Performing Organization Address [facility] Co de Phone Number [facility] [address] * HIV 1/2 ANTIGEN/ANTIBODY,FOURTH GENERATION W/RFL [...] purpose. For additional information please refer to http://education.TestSoup/faq/OVM580 (This link is being provided for informational/ educational purposes only.) The performance of this assay has not been clinically validated in patients less than 2 years old. 08/23/2021 8:11 AM EDT Risa Lovett MD LAB BLOOD ORDERABLES Final Result Performing Organization Address [facility] Co de Phone Number [facility] [address] [place] [address], * Pap Smear (06/17/2020 12:00 AM EDT) Swab Historical Marcello [facility] CYTOLOGY ORDERABLES F inal Result Performing Organization Address [facility] Co de Phone Number IMAGING * Hm Colonoscopy (02/03/2020) Colonoscopy normal Whitney Armendariz MD HEALTH MAINTENANCE Final Result from Last 3 Months or Most Recently Relevant to Health Maintenance [place] [address] [place] [address] , [address] [place] [address] Advance Directives Documents on File Type Date Recorded Patient Health And Safety Consultant Expl anation Advance Directives and Living Will 08/22/2023 Health Care Proxy 08/22/23 Care Teams Rattling Machine Tender Relationship Specialty Start Date End Date Jack, MD Risa [address] [place] [address] PCP - General Family Medicine 02/12/18 Filomena Davidson, KanchanD [address] [place] [address] Pharmacist Internal Medicine 02/20/22
--- OUTSIDE RECORDS SUMMARY | 2025-02-07 07:41 | XMS_ITS | Encounter Summary ---
Author Organization [employer] Address [address] [facility] 7t [place] [address] Care Team Providers Care Photographic Engineer Name Role Phone Risa Lovett MD Primary Care Provider + [phone] Filomena Davidson PharmD Unavailable [phone] Reason for Visit * Reason Onset Date Comments chartprep 02/03/2025 Encounter Details Date Type Department Care Team ([facility] st Contact Info) Description 02/03/2025 Telephone [facility] [address] [place] [address] Risa Lovett MD [address] [place] [address] chartprep Social History Tobacco Use Types Packs/Day Years [...] encounter Miscellaneous Notes * Telephone Encounter - Cortney Mccarty [place] - 02/03/2025 2:47 PM EST ..Chart Prep Labs: done Images: not applicable Vaccines due: Updated Referrals: Not Applicable Screenings: Not Applicable Overdue care gaps: None documented in this encounter Plan of Treatment [...] documented as of this encounter Care Teams Photographic Engineer Relationship Specialty Start Date End Date Risa Lovett MD [address] [place] [address] PCP - General Family Medicine 02/12/18 Filomena Davidson, PharmD [address] [place] [address] Pharmacist Internal Medicine 02/20/22 documented as of this encounter
--- OUTSIDE RECORDS SUMMARY | 2025-02-07 07:41 | XMS_ITS | Encounter Summary ---
Author Organization [employer] Address [address] [facility] 7t [place] [address] Care Team Providers Care Registered Dental Assistant Name Role Phone Risa Lovett MD Primary Care Provider + [phone] Filomena Davidson PharmD Unavailable [phone] Reason for Visit * Reason Onset Date Comments CHART PREP 02/03/2025 Encounter Details Date Type Department Care Team ([facility] st Contact Info) Description 02/03/2025 Telephone [facility] MEDICINE [address] [place] [address] Risa Lovett MD [address] [place], [place] [phone] CHART PREP Social History Tobacco Use Types Packs/Day Years [...] encounter Miscellaneous Notes * Telephone Encounter - Katharina Cazares [place] - 02/03/2025 2:50 PM EST Chart Prep Labs: done Images: not applicable Referrals: MAMMO 02/07/2025 @ 7:45 AM. Vaccines due: not applicable Screenings: not applicable Overdue care gaps: Not applicable documented in this encounter Plan of Treatment [...] documented as of this encounter Care Teams Registered Dental Assistant Relationship Specialty Start Date End Date Risa Lovett MD [address] [place] [phone] PCP - General Family Medicine 02/12/18 Filomena Davidson, PharmD [address] [place] [phone] Pharmacist Internal Medicine 02/20/22 documented as of this encounter
--- OUTSIDE RECORDS SUMMARY | 2025-02-07 07:41 | XMS_ITS | Encounter Summary ---
Author Organization [employer] Address [address] [facility] [address]t [place] [address] Care Team Providers Care Microarray Operations Vice President Name Role Phone Risa Lovett MD Primary Care Provider + [phone] Filomena Davidson PharmD Unavailable [phone] Encounter Details Date Type Department Care Team ([facility] st Contact Info) Description 04/24/2024 Orders Only [facility] MED[facility]INE [address] [place], [place] [phone] Risa Lovett MD [address] [place], [place] [phone] Social History Tobacco Use Types Packs/Day Years [...] documented as of this encounter Care Teams Microarray Operations Vice President Relationship Specialty Start Date End Date Risa Lovett MD [address] [place] [phone] PCP - General Family Medicine 02/12/18 Filomena Davidson, PharmD [address] [place] [phone] Pharmacist Internal Medicine 02/20/22 documented as of this encounter
--- OUTSIDE RECORDS SUMMARY | 2025-02-07 07:41 | XMS_ITS | Encounter Summary ---
Author Organization [employer] Address [address] [facility] [address] [place] [address] Care Team Providers Care Carpet Technician Name Role Phone Risa Lovett MD Primary Care Provider + [phone] Filomena Davidson PharmD Unavailable [phone] Encounter Details Date Type Department Care Team ([facility] st Contact Info) Description 05/16/2023 Telephone [facility] MEDICINE [address] [place], [place] [phone] Risa Lovett MD [address] [place], [place] [phone] Social History Tobacco Use Types Packs/Day Years [...] Time PHQ-9 Depression Total Score: 0 11/16/19 10:33 AM EDT documented as of this encounter Care Teams Carpet Technician Relationship Specialty Start Date End Date Risa Lovett MD [address] [place] [address] PCP - General Family Medicine 02/12/18 Filomena Davidson PharmD [address] [place] [phone] Pharmacist Internal Medicine 02/20/22 documented as of this encounter
== END 2025-02-07 07:38 | disposition home or self-care (01) ==
LOC: HO.MAMMO 07:37
PROVIDERS: PCP Family Medicine; Visit Provider Family Medicine
DX: Z12.31 Encounter for screening mammogram for malignant neoplasm of breast (principal)
CPT/HCPCS: 77063; 77067

== ENCOUNTER → 2025-02-07 07:45 | Outpatient (BNV) | payer OTHER, SELFPAY | PROVIDERS: PCP Family Medicine; Visit Provider Internal Medicine | DX: Z12.31 Encounter for screening mammogram for malignant neoplasm of breast (principal) | CPT/HCPCS: 77063; 77067 ==